=== PATIENT | female | born 1940 | race Caucasian/White ===

== ENCOUNTER → 2018-11-05 11:15 | Outpatient (REF) | payer MEDICARE, OTHER, SELFPAY ==
[2018-11-05 11:27] LABS: INR 3.1 (0.9-1.3); Prothrombin Time 36.9 SECONDS (10.1-12.7)
== END ==
LOC: LAB 11:15
PROVIDERS: PCP Family Medicine; Visit Provider Family Medicine
DX: Z79.01 Long term (current) use of anticoagulants (principal)
CPT/HCPCS: 85610

== ENCOUNTER → 2018-12-10 11:41 | Outpatient (REF) | payer MEDICARE, OTHER, SELFPAY ==
[2018-12-10 11:51] LABS: INR 2.9 (0.9-1.3); Prothrombin Time 34.5 SECONDS (10.1-12.7)
== END ==
LOC: LAB 11:41
PROVIDERS: PCP Family Medicine; Visit Provider Family Medicine
DX: Z79.01 Long term (current) use of anticoagulants (principal)
CPT/HCPCS: 85610

== ENCOUNTER → 2019-01-07 11:53 | Outpatient (ROUT) | payer MEDICARE, OTHER, SELFPAY ==
[2019-01-07 12:12] LABS: INR 3.4 (0.9-1.3); Prothrombin Time 40.6 SECONDS (10.1-12.7)
== END ==
PROVIDERS: PCP Family Medicine; Visit Provider Family Medicine
DX: Z79.01 Long term (current) use of anticoagulants (principal)
CPT/HCPCS: 85610

== ENCOUNTER → 2019-02-08 12:02 | Outpatient (ROUT) | payer MEDICARE, OTHER, SELFPAY ==
[2019-02-08 12:17] LABS: INR 3.1 (0.9-1.3); Prothrombin Time 36.8 SECONDS (10.1-12.7)
== END ==
PROVIDERS: PCP Family Medicine; Visit Provider Family Medicine
DX: Z79.01 Long term (current) use of anticoagulants (principal)
CPT/HCPCS: 85610

== ENCOUNTER → 2019-04-01 11:22 | Outpatient (ROUT) | payer MEDICARE, OTHER, SELFPAY ==
[2019-04-01 11:35] LABS: INR 2.3 (0.9-1.3); Prothrombin Time 26.5 SECONDS (10.1-12.7)
== END ==
PROVIDERS: Visit Provider Student in an Organized Health Care Education/Training Program
DX: Z79.01 Long term (current) use of anticoagulants (principal)
CPT/HCPCS: 85610

== ENCOUNTER → 2019-04-15 11:27 | Outpatient (ROUT) | payer MEDICARE, OTHER, SELFPAY ==
[2019-04-15 12:09] LABS: Prothrombin Time 22.9 SECONDS (10.1-12.7)
== END ==
PROVIDERS: Visit Provider Student in an Organized Health Care Education/Training Program
DX: I25.10 Atherosclerotic heart disease of native coronary artery without angina pectoris (principal); Z95.2 Presence of prosthetic heart valve; Z79.01 Long term (current) use of anticoagulants
CPT/HCPCS: 85610

== ENCOUNTER → 2019-06-13 12:27 | Outpatient (CLI) | payer MEDICARE, OTHER, SELFPAY ==
--- NOTE | 2019-06-13 | DI.RAD.S_ITS ---
PROCEDURE: XR CHEST 2V INDICATIONS: DYSPNEA TECHNIQUE: 2 views of the chest were acquired. COMPARISON: [facility], , CHEST 2 VIEW, 07/09/2007, 12:41. FINDINGS: Surgical changes and devices: Median sternotomy wires are intact. Surgical clips in the mediastinum are present. Changes of valvular replacement. Lungs and pleura: Small bilateral pleural effusions larger on the right. Mild diffuse interstitial prominence with vascular congestion. No focal consolidation. Mediastinum: The cardiomediastinal contours remain stable with enlargement of the cardiac silhouette. Bones and chest wall: No suspicious bony abnormalities. Soft tissues appear unremarkable. IMPRESSION: Constellation of findings suggestive of early pulmonary edema. Concurrent infectious/inflammatory process not excluded if clinically appropriate. Dictated by: Ajit Asekw M.D. on 06/13/2019 at 14:11 Approved by: Ajit Askew M.D. on 06/13/2019 at 14:14
== END ==
PROVIDERS: PCP Student in an Organized Health Care Education/Training Program; Visit Provider Student in an Organized Health Care Education/Training Program
DX: R06.00 Dyspnea, unspecified (principal); J90 Pleural effusion, not elsewhere classified
CPT/HCPCS: 71046; 84484

== ENCOUNTER → 2019-06-13 12:30 | Outpatient (ROUT) | payer MEDICARE, OTHER, SELFPAY ==
[2019-06-13 13:13] LABS: Troponin I < 0.012 ng/mL (0.01-0.034)
== END ==
PROVIDERS: Visit Provider Student in an Organized Health Care Education/Training Program
DX: R06.09 Other forms of dyspnea (principal)
CPT/HCPCS: 84484

== ENCOUNTER → 2019-06-24 12:46 | Outpatient (CLI) | payer MEDICARE, OTHER, SELFPAY ==
--- NOTE | 2019-07-01 07:48 | PM.PFT.1 ---
Pulmonary Function Test Referral & Results Date Patient Seen: 06/24/19 Requesting provider: Jammie Mclean Results: The spirometry demonstrates an FVC of 1.34 L which is 57% of predicted. The FEV1 was measured at 0.7 L which is 40% of predicted. The FEV1/FVC ratio was 52 which is 70% of predicted. Following the administration of bronchodilator there was no appreciable change. Lung volumes show an SVC of 1.52 L which is 61% of predicted. The diffusing capacity was measured at 10.37 which is 48% of predicted. No hemoglobin value was provided, so no correction for potential anemia could be made, if appropriate. The maximum voluntary ventilation was reduced Interpretation: This study demonstrates severe obstructive lung disease with FEV1 less than 1 L. There is no evidence of benefit following bronchodilator administration Patient also with moderate restrictive lung disease based on reduction SVC There is also severe reduction in diffusing capacity suggesting significant disease at the capillary alveolar level. Altogether this is consistent with a diagnosis of COPD
== END ==
PROVIDERS: Visit Provider Student in an Organized Health Care Education/Training Program
DX: R06.02 Shortness of breath (principal); J98.8 Other specified respiratory disorders
CPT/HCPCS: 94060; 94726; 94729

== ENCOUNTER → 2019-07-15 11:22 | Outpatient (ROUT) | payer MEDICARE, OTHER, SELFPAY ==
[2019-07-15 11:39] LABS: INR 2.3 (0.9-1.3); Prothrombin Time 27.1 SECONDS (10.1-12.7)
== END ==
PROVIDERS: Visit Provider Student in an Organized Health Care Education/Training Program
DX: Z79.01 Long term (current) use of anticoagulants (principal)
CPT/HCPCS: 85610

== ENCOUNTER → 2019-08-04 11:41 | Outpatient (ROUT) | payer MEDICARE, OTHER, SELFPAY ==
[2019-08-04 11:59] LABS: INR 2.6 (0.9-1.3); Prothrombin Time 30.9 SECONDS (10.1-12.7)
[2019-08-04 12:04] LABS: D Dimer < 200 ng/mL (<230)
[2019-08-04 12:21] LABS: Influenza A - CEPHEID Flu A NEGATIVE (NEGATIVE)
[2019-08-04 12:22] LABS: Influenza B - CEPHEID Flu B NEGATIVE (NEGATIVE)
== END ==
PROVIDERS: Visit Provider Student in an Organized Health Care Education/Training Program
DX: R06.09 Other forms of dyspnea (principal)
CPT/HCPCS: 85379; 85610; 87502

== ENCOUNTER → 2019-08-04 11:48 | Outpatient (CLI) | payer MEDICARE, OTHER, SELFPAY ==
--- NOTE | 2019-08-04 | DI.RAD.S_ITS ---
PROCEDURE: XR CHEST 2V INDICATIONS: cough TECHNIQUE: 2 views of the chest were acquired. COMPARISON: [facility], PET/CT NECK TO MID THIGH, 06/17/2007, 12:48. [facility], CT, THORAX WITH CONTRAST, 01/09/2012, 9:23. [facility], CR, CHEST 2 VIEW, 07/09/2007, 12:41. [facility], CR, XR CHEST 2V, 06/13/2019, 12:30. [facility], CR, XR CHEST 2V, 08/04/2019, 0:00. FINDINGS: Surgical changes and devices: Sternotomy and a aortic valve prosthesis. Lungs and pleura: Small right pleural effusion. There are bilateral interstitial infiltrates. No pneumothorax. Mediastinum: Mediastinal contours are normal. Heart size is prominent. Bones and chest wall: No suspicious bony abnormalities. Degenerative changes in thoracic spine. Severe atherosclerotic aorta. Soft tissues appear unremarkable. IMPRESSION: 1. Mild cardiomegaly and increased vascularity consistent mild pulmonary edema. 2. Small right pleural effusion. Dictated by: Frank Aldana M.D. on 08/04/2019 at 14:43 Approved by: Frank Aldana M.D. on 08/04/2019 at 14:51
== END ==
PROVIDERS: PCP Student in an Organized Health Care Education/Training Program; Visit Provider Student in an Organized Health Care Education/Training Program
DX: R05 Cough (principal); R06.09 Other forms of dyspnea; I51.7 Cardiomegaly; J90 Pleural effusion, not elsewhere classified
CPT/HCPCS: 71046; 85379; 85610; 87502

== ENCOUNTER → 2019-08-16 06:47 | Outpatient (CLI) | payer MEDICARE, OTHER, SELFPAY ==
--- NOTE | 2019-08-16 | DI.ECHO.S_ITS ---
[facility]---------+ [facility] +---------+ : : [address] : : : : [id number] : : : : Phone: [phone]+ Echocardiogram Report + + :Name: THANIA VANG Study Date: 08/16/2019 Height: 62 in : :[facility] Weight: 160 lb : : Gender: Female BSA: 1.7 m2 : :: 1940 Age: 78 yrs BP: 132/78 mmHg: :Reason For Study: DYSPNEA : : Performed By: Andrew Cohn : :Referring: TARAS DEL ROSARIO : + + Interpretation Summary The left ventricle is grossly normal size. The ejection fraction is estimated to be 60-65%. The right ventricle is mildly dilated. There is moderate mitral regurgitation. There is a mechanical aortic valve. The prosthetic aortic valve is well-seated. The aortic valve mean gradient is 10 mmHg. The peak aortic velocity is 2.08 m/sec. There is moderate tricuspid regurgitation. The right ventricular systolic pressure is estimated to be at least 45 mmHg based on an estimated right atrial pressure of 3 mm Hg. The patient was in atrial fibrillation with heart rates between 97-109 bpm during the exam. The patient had a bundle branch block rhythm during the exam. Procedure: A two-dimensional transthoracic echocardiogram with color flow and Doppler was performed. The study quality was technically adequate. There is no prior echocardiogram noted for this patient. The patient was in atrial fibrillation with heart rates between 97-109 bpm during the exam. The patient had a bundle branch block rhythm during the exam. Left Ventricle: The left ventricle is grossly normal size. Proximal septal thickening is noted. There is no echo evidence for significant left ventricular outflow tract obstruction. There is no thrombus. Left ventricular systolic function is normal. The ejection fraction is estimated to be 60-65%. There are no focal wall motion abnormalities. Diastolic function could not be accurately assessed due to atrial fibrillation. Right Ventricle: The right ventricle is mildly dilated. Right ventricular systolic function is mild to moderately reduced. Atria: The left atrium is severely dilated. Right atrial size is normal. The interatrial septum is intact with no evidence for an atrial septal defect. Mitral Valve: The mitral valve leaflets appear mildly thickened, but open well. The mitral valve leaflets are mildly calcified. There is mild to moderate mitral annular calcification. No significant mitral valve stenosis. There is moderate mitral regurgitation. Aortic Valve: There is a mechanical aortic valve. The prosthetic aortic valve is well-seated. The aortic valve mean gradient is 10 mmHg. The peak aortic velocity is 2.08 m/sec. No aortic regurgitation is present. Tricuspid Valve: The tricuspid valve leaflets are thin and pliable. There is moderate tricuspid regurgitation. The right ventricular systolic pressure is estimated to be at least 45 mmHg based on an estimated right atrial pressure of 3 mm Hg. Pulmonic Valve: The pulmonic valve is not well visualized. There is trace pulmonic regurgitation. Great Vessels: The aortic root is normal size. The dimensions of the ascending aorta are normal. The pulmonary artery is normal size. The IVC is of normal diameter and collapses greater than 50% with a sniff. This suggests a low right atrial pressure of 3 mm Hg. Pericardium/ Pleura There is no pericardial effusion. There is no pleural effusion. MMode/2D Measurements & Calculations LVIDd: 3.3 cm LVOT diam: 2.0 cm LVIDs: 2.3 cm Ao root diam: 2.5 cm FS: 29.9 % EPSS: 0.91 cm IVSd: 1.4 cm LVPWd: 0.89 cm LV mejia. diameter/BSA (cm/m^2): 1.9 LV sys. diameter/BSA (cm/m^2): 1.3 LA A2 area: 24.5 cm2 RA long axis: 5.0 cm LA A4 area: 24.3 cm2 RA area: 12.1 cm2 LA length (vol): 6.1 cm RA vol: 24.7 ml LA vol: 82.8 ml RA : 14.2 ml/m2 LA vol index: 47.6 ml/m2 TAPSE: 0.80 cm Doppler Measurements & Calculations Ao V2 max: 208.9 cm/sec LVOT Max Jose L: 78.2 cm/sec Ao V2 mean: 146.9 cm/sec LV V1 max P.4 mmHg Ao max P.6 mmHg LV V1 VTI: 15.6 cm Ao mean P.9 mmHg FLASH(I,D): 1.2 cm2 Ao V2 VTI: 41.1 cm FLASH(V,D): 1.2 cm2 sev ratio: 0.38 FLASH indexed to BSA (cm^2/m^2): 0.67 Med Peak E' Jose L: 7.9 cm/sec TR max jose l: 287.0 cm/sec Lat Peak E' Jose L: 7.9 cm/sec TR max P.4 mmHg PA V2 max: 75.5 cm/sec PA V2 mean: 60.3 cm/sec PA mean P.6 mmHg PA Accel Time: 0.07 sec SV(LVOT): 48.0 ml Reading Physician:06:36 PM
--- NOTE | 2019-08-16 08:15 | DI.CT.S_ITS ---
PROCEDURE: CT ANGIO CHEST INDICATIONS: Dyspnea on exertion TECHNIQUE: After the administration of intravenous contrast, 2 mm thick sections acquired from the pulmonary apices to the posterior costophrenic angles. 3-dimensional maximum intensity projection (MIP) coronal and sagittal reformats were then acquired through the thorax. For radiation dose reduction, the following was used: automated exposure control, adjustment of mA and/or kV according to patient size. COMPARISON: [facility], CT, THORAX WITH CONTRAST, 01/09/2012, 9:23. FINDINGS: Image quality: Excellent. Pulmonary arteries: Pulmonary arteries are normal in size, and demonstrate no intraluminal filling defects to suggest central pulmonary embolism. Lungs and pleura: There is a solid 1.0 cm nodule within the posterior medial basal segment of the left lower lobe (series 5, image 156). This was not visualized on the comparison CT from 01/09/12. No other pulmonary nodules. No acute air space opacities. No pleural effusion or pneumothorax. Mediastinum: Heart size is normal, without pericardial effusion. No mediastinal or hilar adenopathy. Thoracic aorta is normal in caliber and enhancement. Dense atheromatous calcifications are present throughout the thoracic aorta. Esophagus is normal in caliber, without hiatal hernia. Bones and chest wall: No suspicious bony lesions. Ribs and thoracic spine appear intact throughout. Thyroid gland is unremarkable. No axillary or supraclavicular adenopathy. Abdomen: Visualized upper abdominal solid organs appear normal in the early arterial phase of enhancement. IMPRESSION: 1. No acute pulmonary embolus. 2. 1.0 cm left lower lobe solid pulmonary nodule. Please see followup guidelines below. Consider PET CT or followup in 3 months. Fleischner Society criteria for SOLID lung nodule followup. Nodule size (mm)Low-risk patientHigh-risk patient?4No follow-up neededFollow-up at 12 mo; if no change, no further follow-up>2-0Taoymj-us CT at 12 mo; if no change, no further follow-up needed.Initial follow-up CT at 6-12 mo, then 18-24 mo if no change. >6-8Initial follow-up CT at 6-12 mo, then 18-24 mo if no change. Initial follow-up CT at 3-6 mo, then 9-12 mo and 24 mo if no change. >8Follow-up CT at 3, 9, 24 mo. Or PET and/or biopsy.Same as for low-risk pts. Fleischner Society criteria for SUB-SOLID lung nodule followup. Solitary pure ground-glass nodules5 mm or lessNo followup needed. >5 mm3 mo follow-up CT to confirm persistence. Then annual CT for 3 years. Part-solid nodules3 mo follow-up CT to confirm persistence. If persistent with solid component <5 mm, annual CT for at least 3 years. If solid component is 5 mm or more, biopsy or surgical resection. Consider PET-CT for lesions > 10 mm. Multiple sub-solid nodulesPure ground glass nodules [address] at 2 and 4 years. Pure ground glass nodules >5 mm without dominant lesion. [address] to confirm persistence, then annual followup CT for at least 3 years. Dominant nodule(s) with part-solid or solid component. [address] to confirm persistence. If persistent, consider biopsy or surgical resection, thompson if lesions have >5 mm solid component. Dictated by: Dinorah Elaine M.D. on 08/16/2019 at 8:32 Approved by: Dinorah Elaine M.D. on 08/16/2019 at 8:36
[2019-08-16 08:22] LABS: Blood Urea Nitrogen 20 mg/dL (7-17); Calcium 9.8 mg/dL (8.4-10.2); Carbon Dioxide 31 mmol/L (22-32); Chloride 94 mmol/L (98-107); Estimated Glomerular Filt Rate 53.3 mL/min (>60); Glucose 136 mg/dL (80-110); HEMOLYSIS < 15 (0-50); Sodium 135 mmol/L (137-145)
== END ==
PROVIDERS: PCP Student in an Organized Health Care Education/Training Program; Visit Provider Student in an Organized Health Care Education/Training Program
DX: I08.1 Rheumatic disorders of both mitral and tricuspid valves (principal); I48.91 Unspecified atrial fibrillation; R06.09 Other forms of dyspnea; I25.10 Atherosclerotic heart disease of native coronary artery without angina pectoris; R91.1 Solitary pulmonary nodule; Z95.2 Presence of prosthetic heart valve
CPT/HCPCS: 36415; 71275; 80048; 93306; Q9967

== ENCOUNTER → 2019-09-02 15:46 | Outpatient (ROUT) | payer MEDICARE, OTHER, SELFPAY ==
[2019-09-02 16:04] LABS: INR 1.7 (0.9-1.3); Prothrombin Time 19.8 SECONDS (10.1-12.7)
== END ==
PROVIDERS: PCP Student in an Organized Health Care Education/Training Program; Visit Provider Student in an Organized Health Care Education/Training Program
DX: Z79.01 Long term (current) use of anticoagulants (principal)
CPT/HCPCS: 85610

== ENCOUNTER 2019-09-16 09:58 | Emergency (ER) | payer MEDICARE, OTHER, SELFPAY ==
[2019-09-16 10:05] VITALS: BP 92/74; PULSE 121; RESP 17; TEMP 36.5; O2SAT 98; BMI 29.2
--- NOTE | 2019-09-16 10:06 | DI.RAD.S_ITS ---
PROCEDURE: XR KNEE RT 3V INDICATIONS: Pain and swelling s/p fall 3 weeks ago TECHNIQUE: 3 views of the knee were acquired. COMPARISON: None. FINDINGS: Bones: No fractures or dislocations. No suspicious bony lesions. Soft tissues: There is a mild joint effusion. No suspicious soft tissue calcifications. IMPRESSION: No acute bony injury is seen. Mild joint effusion. If there is strong clinical suspicion for internal derangement of this joint, please consider a dedicated MRI for further evaluation (assuming that there is no contraindication to MRI). Dictated by: Jeffrey Hanna M.D. on 09/16/2019 at 9:29 Approved by: Jeffrey Hanna M.D. on 09/16/2019 at 9:30
[2019-09-16 11:30] VITALS: BP 124/63; PULSE 100; RESP 21; O2SAT 97
[2019-09-16 11:36] LABS: INR 2.2 (0.9-1.3); Prothrombin Time 26.1 SECONDS (10.1-12.7)
[2019-09-16] MEDS: ONDANSETRON 4 MG/2 ML INJ IV (11:39)
[2019-09-16] MEDS: KETOROLAC 60 MG/2 ML VIAL 15 MG IV (11:39)
[2019-09-16 11:40] LABS: BUN Creatinine Ratio 24.4 (6-22); Blood Urea Nitrogen 22 mg/dL (7-17); Calcium 9.5 mg/dL (8.4-10.2); Carbon Dioxide 27 mmol/L (22-32); Chloride 99 mmol/L (98-107); Estimated Glomerular Filt Rate > 60.0 mL/min (>60); Glucose 150 mg/dL (80-110); HEMOLYSIS < 15 (0-50); Magnesium 2.1 mg/dL (1.6-2.3); Potassium 3.5 mmol/L (3.4-5.1); Sodium 137 mmol/L (137-145)
[2019-09-16 11:51] LABS: Troponin I < 0.012 ng/mL (0.01-0.034)
[2019-09-16 12:02] VITALS: BP 134/99; PULSE 98; RESP 18; O2SAT 99
[2019-09-16] MEDS: METOPROLOL TARTRATE 5 MG/5 ML INJ IV (12:08)
[2019-09-16 12:18] VITALS: BP 141/87; PULSE 100; RESP 20; O2SAT 98
--- NOTE | 2019-09-16 12:20 | PC.NURSE ---
pt here for right knee injury 3 weeks ago, +pain right knee.
[2019-09-16 12:35] VITALS: BP 135/91; PULSE 94; RESP 22; O2SAT 97
--- NOTE | 2019-09-16 15:43 | ED_ITS ---
HPI - Extremity Injury (Lower) General Chief Complaint: Extremity Injury, Lower Stated Complaint: bad right knee Time Seen by Provider: 09/16/19 10:34 Source: patient Mode of arrival: Wheelchair Limitations: no limitations History of Present Illness HPI Narrative: The patient is an 78-year-old female who states that 2 weeks ago she slipped the and fell landing on her buttock and slid down stairs. During that fall she has injured her right knee. She has developed progressive pain and discomfort in the right knee and has not been seen for it. The patient came into the emergency department to have it evaluated. During her evaluation the patient was noted to have a heart rate of 120. The nurse proceeded to try and evaluated and the woman said no your not and would not allow it to be evaluated. When I went in to see the patient she had a tachycardia that was consistent with atrial fibrillation with rapid ventricular rate. I explained to her that that needed to be further evaluated. She has minimal shortness of breath at times no chest pain no fever no chills or sweats. She states that she has had aortic valve replacement and is on Coumadin. She is also taking Lopressor 100 mg per day for rate control and blood pressure. She denies a history of COPD myocardial infarction congestive heart failure diabetes. She has had no abdominal pain nausea or vomiting. She states that when she tries to walking ambulate is when she develops most pain in her knee. Upon weight-bearing and ambulation her pain is 10/10. At rest her pain is 2 to 3/10 without movement. Related Data Home Medications Medication Instructions Recorded Confirmed latanoprost 1 drp [facility] BEDTIME #0 08/30/16 09/16/19 warfarin [Coumadin] #0 08/30/16 03/18/18 albuterol sulfate [ProAir HFA] 1 puff INHALATION PRN PRN 09/16/19 09/16/19 atorvastatin 40 mg PO DAILY 09/16/19 09/16/19 fluticasone propion-salmeterol 1 puff INHALATION BID 09/16/19 09/16/19 [Advair HFA] hydrochlorothiazide 50 mg PO DAILY 09/16/19 09/16/19 losartan 25 mg PO DAILY 09/16/19 09/16/19 metoprolol tartrate 100 mg PO BID 09/16/19 09/16/19 potassium chloride [Klor-Con 10] 10 meq PO TID 09/16/19 Previous Rx's Medication Instructions Recorded ibuprofen 600 mg PO QID PRN #20 tab NS MDD 4 09/16/19 tabs Allergies Allergy/AdvReac Type Severity Reaction Status Date / Time oxycodone [OXYCODONE] Allergy Unknown Verified 09/16/19 10:11 Penicillins [PENICILLINS] Allergy Unknown Verified 09/16/19 10:11 Review of Systems Review of Systems Narrative: Her review systems were all negative except for the those mentioned in the history of present illness. Patient History Social History household members: none lives independently: Yes Smoking Status: Never smoker alcohol intake: never substance use type: does not use Smoking Status: Never smoker alcohol intake frequency: holidays/special occasions only Substance Use Type: does not use Exam Narrative Exam Narrative: PHYSICAL EXAM: CONSTITUTIONAL: Awake, Alert, Oriented, Coherent, Cooperative in NAD. She is of very cooperative feisty. Does not appear toxic or ill. HEAD: AT/NC EENT: PERRL, FROM of eyes, no discharge, No epistaxis or nasal drainage Oral mucosa is moist and pink, posterior pharynx is without erythema or exudate. NECK: Supple, no obvious JVD, Trachea is midline without stridor, no palpable LN or masses. SPINE: No gross deformity, no palpable tenderness of the cervical, thoracic, lumbar or sacral spine. No CVA tenderness. THORAX: No deformity, retractions, chest wall tenderness, subcutaneous air or crepitice. LUNGS: Clear with symmetrical breath sounds without respiratory distress HEART: Heart tones reveal a variable S1-S2 with a soft systolic murmur. Rhythm is irregular irregular and tachycardic. Radial pulses are 2+ and symmetrical. ABDOMEN: Soft, non-tender, normal bowel sounds without guarding, rebound, rigidity or palpable mass . LYMPHATIC: no palpable lymph nodes EXTREMITIES: The patient's right knee he is mildly swollen. She has tenderness to palpation over the tibia and fibula without bruising or deformity. There is no tenderness to palpation over the popliteal fossa. She does have tenderness along the medial and lateral joint lines. There is no ballottement of the patella. SKIN: No rash, bruising, petechiae or purpura. NEURO: Awake, alert, oriented, conversive, cranial nerves II-XII are symmetrical and normal, moves all 4 extremities and is ambulatory Initial Vital Signs Initial Vital Signs: Vital Signs Temperature 97.7 F 09/16/19 10:05 Pulse Rate 121 H 09/16/19 10:05 Respiratory Rate 17 09/16/19 10:05 Blood Pressure 92/74 09/16/19 10:05 Pulse Oximetry 98 09/16/19 10:05 Course Course Course Narrative: I spoke with the patient and explained to her that because of her atrial fibrillation she will not fill her ve she review ntricles since her atria are not functioning properly. I said that this would get worse with a rapid heart rate. I explained to the patient that her atrial fibrillation is a complication of her aortic stenosis and valve replacement. She agreed to have an IV started and be evaluated. The patient's EKG revealed that she had a right bundle branch block with severe right axis deviation normal QT interval at 427 milliseconds a QRS duration of 150 milliseconds. Her ventricular rate was 101. Her INR was 2.2 and her electrolytes and magnesium were acceptable. Her EKG rev ealed no acute diagnostic ST segment changes. She had inverted T-waves in leads V1 V2. She had a questionable QS wave in lead III and AVF. This may represent a questionable inferior wall SD of undetermined etiology. The patient was administered 5 mg of Lopressor IV push to make sure that her heart rate was ranging from 85 to less than 100 before being discharged. She was placed in a right leg immobilizer for her knee and given a prescription for a front wheeled walker. Even though she was on Coumadin she was given a brief prescription for for ibuprofen 600 mg Q 8-6 hours. She was advised to use it only for pain and discomfort that is unrelieved by Tylenol. The patient is unable to take opiates since Percocet/oxycodone caused her to become psychotic. She refused titration and small doses of IV morphine. She was discharged home and advised to follow- up with her primary care physician as well as Dr. dumont the orthopedic surgeon on-call. She was informed that the pain medicines and knee immobilizer will not relieve her pain and discomfort completely bite take the edge off her discomfort solid is tolerable. The same is true of the knee immobilizer. Orders Ordered: ED Orders 09/16/19 10:06 XR knee RT 3V Stat 09/16/19 11:00 EKG-12 Lead Stat 09/16/19 11:20 Basic Metabolic Panel Stat Magnesium Stat Prothrombin Time INR Stat Troponin I Stat Discontinued Medications Ketorolac Tromethamine (Toradol) 15 mg IV NOW ONE Stop: 09/16/19 11:11 Last Admin: 09/16/19 11:39 Dose: 15 mg Documented by: JOSÉ ANTONIO Metoprolol Tartrate (Lopressor) 5 mg IV Q5M BASILIO Stop: 09/16/19 11:56 Last Admin: 09/16/19 13:02 Dose: Not Given Documented by: Admin: 09/16/19 13:02 Dose: Not Given Documented by: Admin: 09/16/19 12:08 Dose: 5 mg Documented by: SALAS Morphine Sulfate (Morphine) 4 mg IV NOW ONE Stop: 09/16/19 11:01 Last Admin: 09/16/19 11:40 Dose: Not Given Documented by: JOSÉ ANTONIO Ondansetron HCl (Zofran) 4 mg IV NOW ONE Stop: 09/16/19 11:01 Last Admin: 09/16/19 11:39 Dose: 4 mg Documented by: JOSÉ ANTONIO Vital Signs Vital signs: Vital Signs - 8 hr 09/16/19 10:05 09/16/19 11:30 09/16/19 12:02 Temperature 97.7 F Pulse Rate 121 H 100 H 98 H Respiratory Rate 17 21 18 Blood Pressure 92/74 Blood Pressure [Right Arm] 124/63 134/99 H Pulse Oximetry 98 97 99 09/16/19 12:18 09/16/19 12:35 Temperature Pulse Rate 100 H 94 H Respiratory Rate 20 22 Blood Pressure Blood Pressure [Right Arm] 141/87 H 135/91 H Pulse Oximetry 98 97 MDM - Extremity Injury (Lower) Lab Data Result diagrams: 09/16/19 11:20 Labs: Lab Results 09/16/19 09/16/19 Range/Units 11:20 11:20 PT 26.1 H (10.1-12.7) SECONDS INR 2.2 H (0.9-1.3) Sodium 137 (137-145) mmol/L Potassium 3.5 (3.4-5.1) mmol/L Chloride 99 (98-107) mmol/L Carbon Dioxide 27 (22-32) mmol/L BUN 22 H (7-17) mg/dL Creatinine 0.90 (0.52-1.04) mg/dL Estimated GFR > 60.0 (>60) mL/min BUN/Creatinine Ratio 24.4 H (6-22) Glucose 150 H (80-110) mg/dL Calcium 9.5 (8.4-10.2) mg/dL Magnesium 2.1 (1.6-2.3) mg/dL Troponin I < 0.012 (0.01-0.034) ng/mL Discharge Plan Departure Patient Disposition: Home Clinical Impression: Effusion of knee joint right Injury of knee Qualifiers: Encounter type: initial encounter Laterality: right Qualified Code(s): S89.91XA - Unspecified injury of right lower leg, initial encounter Fall Qualifiers: Encounter type: initial encounter Qualified Code(s): W19.XXXA - Unspecified fall, initial encounter Discharge Date/Time: 09/16/19 13:02 Instructions: DI for Knee Sprain, DI for Knee Effusion, DI for Knee Pain Activity Restrictions/Additional Instructions: Apply ice to your knee and continue to wear the knee brace for stability. To help with the pain and discomfort in the knee walk with either crutches or a front wheeled walker. Since she had troubles with opiate narcotic pain medicines take ibuprofen 600 mg 1 tablet every 6-8 hours as needed for pain and discomfort. When you apply ice to the knee do it for 20-30 minutes every 2-3 hours to help keep the swelling down. Follow up with the [facility] group and Dr. Campos who is the orthopedic surgeon on-call for today. Prescriptions: New ibuprofen 600 mg tablet 600 mg PO QID MDD 4 tabs PRN (Reason: pain) Qty: 20 RF: 0 No Action warfarin [Coumadin] 5 MG tablet Qty: 0 RF: 0 latanoprost 0.005 % drops 1 drp [facility] BEDTIME Qty: 0 RF: 0 atorvastatin 40 mg tablet 40 mg PO DAILY RF: 0 metoprolol tartrate 100 mg tablet 100 mg PO BID RF: 0 hydrochlorothiazide 50 mg tablet 50 mg PO DAILY RF: 0 potassium chloride [Klor-Con 10] 10 mEq tablet extended release 10 meq PO TID RF: 0 losartan 25 mg tablet 25 mg PO DAILY RF: 0 albuterol sulfate [ProAir HFA] 90 mcg/actuation HFA aerosol inhaler 1 puff INHALATION PRN PRN (Reason: Shortness Of Breath) RF: 0 Advair HFA 230-21 mcg/actuation HFA aerosol inhaler 1 puff INHALATION BID RF: 0 Referrals: Jammie Mclean MD [Primary Care Provider] - Tu Wall MD [Physician] -
== END 2019-09-16 13:02 | disposition home or self-care (01) ==
PROVIDERS: Emergency Provider Emergency Medicine; PCP Student in an Organized Health Care Education/Training Program
DX: M25.461 Effusion, right knee (principal); S89.91XA Unspecified injury of right lower leg, initial encounter; R00.0 Tachycardia, unspecified; I48.20 Chronic atrial fibrillation, unspecified; R06.02 Shortness of breath; Z79.01 Long term (current) use of anticoagulants; W10.9XXA Fall (on) (from) unspecified stairs and steps, initial encounter
CPT/HCPCS: 36415; 73562; 80048; 83735; 84484; 85610; 93005; 93010; 96374; 96375; 99285; J1885; J2405

== ENCOUNTER → 2019-09-29 15:47 | Outpatient (CLI) | payer MEDICARE, OTHER, SELFPAY ==
--- NOTE | 2019-09-29 | DI.MRI.S_ITS ---
PROCEDURE: MR KNEE RT WO CON INDICATIONS: Pain in right knee TECHNIQUE: Noncontrast sagittal PD fast spin echo and T2 fast spin echo with fat saturation, sagittal 3-D FLASH with fat saturation; coronal T1 spin echo and PD fast spin echo with fat saturation, and axial PD fast spin echo with fat saturation through the knee. COMPARISON: [facility], CR, XR KNEE RT 3V, 09/16/2019, 10:10. FINDINGS: Image quality: Diagnostic. Bones and joint: There is no acute fracture or dislocation. No suspicious osseous lesions are evident. There is a small moderate size knee joint effusion with a small amount of fluid extending into a Urbina's cyst. Subcutaneous edema about the knee is evident that is more pronounced anteriorly. There is heterogeneity and mild irregularity of the hyaline articular cartilage within all 3 compartments of the knee. There likely are scattered small full-thickness cartilaginous defects. However, no large cartilaginous defects or degenerative marrow changes are appreciated. Cruciate ligaments: The anterior and posterior cruciate ligaments are intact. Menisci: There is moderate fraying along the free edge of the body of the medial meniscus with an apparent irregular radial tear (image 21, series 6). There may be low-grade partial-thickness tearing involving the posterior root of the medial meniscus. Undersurface irregularity along the periphery of the body and posterior horn of the lateral meniscus is evident and which could potentially represent a small undersurface flap tear that has arisen from the body of the meniscus. However, no discrete tears are appreciated. The lateral meniscus is otherwise unremarkable. Medial structures: The medial collateral ligament is thickened and edematous with probable intrasubstance partial thickness tearing. There is edema overlying the soft tissues of the medial collateral ligament. The semimembranosus tendon insertion is intact. The imaged portions of the pes anserinus tendons are unremarkable. No significant fluid is contained within the pes anserinus bursa. Mild increased signal is noted involving the medial gastrocnemius muscle. Lateral structures: The popliteal tendon is intact, but mildly edematous. The lateral collateral ligament proper (fibular collateral ligament) and the proximal tibiofibular ligaments are intact. The distal aspect of the biceps femoris tendon and the iliotibial band are intact. There is mild increased signal involving the proximal aspect of the scoliosis and lateral gastrocnemius muscle. Anterior structures: The quadriceps and patellar tendons are intact. There is prepatellar edema. No significant edema is seen within the infrapatellar fat pad. IMPRESSION: 1. 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 2. Small to moderate size knee joint effusion with a probable small leaking Urbina cyst. 3. Low to moderate grade partial-thickness tearing of the medial collateral ligament. 4. Irregular radial tear through the body of the medial meniscus. 5. Undersurface irregularity involving the body and posterior horn of the lateral meniscus could represent chronic meniscal degeneration or potentially an irregular undersurface flap tear. Please correlate clinically. 6. Mild proximal popliteal tendinopathy. 7. Prepatellar edema may be reactive. Please correlate clinically to exclude bursitis. Dictated by: Musa Abdul M.D. on 09/29/2019 at 16:52 Approved by: Musa Abdul M.D. on 09/29/2019 at 16:56
== END ==
PROVIDERS: PCP Student in an Organized Health Care Education/Training Program; Referring Provider Student in an Organized Health Care Education/Training Program; Visit Provider Student in an Organized Health Care Education/Training Program
DX: M25.561 Pain in right knee (principal); S83.241A Other tear of medial meniscus, current injury, right knee, initial encounter; S83.411A Sprain of medial collateral ligament of right knee, initial encounter; M94.261 Chondromalacia, right knee; M25.461 Effusion, right knee; M67.961 Unspecified disorder of synovium and tendon, right lower leg; R60.0 Localized edema
CPT/HCPCS: 73721

== ENCOUNTER → 2019-10-18 11:57 | Outpatient (ROUT) | payer MEDICARE, OTHER, SELFPAY ==
[2019-10-18 12:07] LABS: INR 3.9 (0.9-1.3); Prothrombin Time 44.5 SECONDS (10.1-12.7)
== END ==
PROVIDERS: PCP Student in an Organized Health Care Education/Training Program; Visit Provider Student in an Organized Health Care Education/Training Program
DX: Z79.01 Long term (current) use of anticoagulants (principal)
CPT/HCPCS: 85610

== ENCOUNTER → 2019-11-04 11:22 | Outpatient (ROUT) | payer MEDICARE, OTHER, SELFPAY ==
[2019-11-04 12:27] LABS: INR 2.2 (0.9-1.3); Prothrombin Time 25.8 SECONDS (10.1-12.7)
== END ==
PROVIDERS: PCP Student in an Organized Health Care Education/Training Program; Visit Provider Student in an Organized Health Care Education/Training Program
DX: Z79.01 Long term (current) use of anticoagulants (principal)
CPT/HCPCS: 85610

== ENCOUNTER → 2019-11-25 07:49 | Outpatient (ROUT) | payer MEDICARE, OTHER, SELFPAY ==
[2019-11-25 07:57] LABS: INR 2.1 (0.9-1.3); Prothrombin Time 23.6 SECONDS (10.1-12.7)
== END ==
PROVIDERS: PCP Student in an Organized Health Care Education/Training Program; Visit Provider Student in an Organized Health Care Education/Training Program
DX: Z79.01 Long term (current) use of anticoagulants (principal)
CPT/HCPCS: 85610

== ENCOUNTER → 2019-12-26 11:57 | Outpatient (ROUT) | payer MEDICARE, OTHER, SELFPAY ==
[2019-12-26 12:08] LABS: INR 2.5 (0.9-1.3); Prothrombin Time 28.4 SECONDS (10.1-12.7)
== END ==
PROVIDERS: PCP Student in an Organized Health Care Education/Training Program; Visit Provider Student in an Organized Health Care Education/Training Program
DX: Z79.01 Long term (current) use of anticoagulants (principal)
CPT/HCPCS: 85610

== ENCOUNTER → 2020-03-02 11:25 | Outpatient (ROUT) | payer MEDICARE, OTHER, SELFPAY ==
[2020-03-02 11:42] LABS: INR 2.8 (0.9-1.3); Prothrombin Time 32.2 SECONDS (10.1-12.7)
== END ==
PROVIDERS: PCP Student in an Organized Health Care Education/Training Program; Visit Provider Student in an Organized Health Care Education/Training Program
DX: Z79.01 Long term (current) use of anticoagulants (principal); Z95.2 Presence of prosthetic heart valve; I34.8 Other nonrheumatic mitral valve disorders
CPT/HCPCS: 85610

== ENCOUNTER 2020-12-12 12:40 | Inpatient (IN) | payer MEDICARE, OTHER, SELFPAY ==
[2020-12-12] VITALS (28 sets, daily range): BP systolic 103–205; BP diastolic 73–100; PULSE 113–139; RESP 12–44; TEMP 36–37; O2SAT 87–97; BMI 29.0
--- NOTE | 2020-12-12 | DI.US.S_ITS ---
PROCEDURE: US ABDOMEN LIMITED INDICATIONS: ELEVATED LIVER FUNCTION TESTS TECHNIQUE: Real-time scanning was performed of the abdominal and retroperitoneal organs, with image documentation. COMPARISON: [facility], CT, CT ANGIO CHEST, 08/16/2019, 8:29. FINDINGS: Liver: There are numerous oval, heterogeneously hypoechoic masses scattered throughout the liver. Largest in the mid left hepatic lobe measures 1.3 x 1.2 x 0.9 cm. Largest in the lateral left hepatic lobe posteriorly measures 1.4 x 1.1 x 1.0 cm. A 1.1 x 1.0 x 1.0 cm lesion is noted in the caudate lobe. There is limited evaluation the right hepatic lobe. The largest right-sided lesion measures 1.4 x 1.1 cm. Difficult to assess vascularity within these masses as the patient was unable to suspend respirations. Gallbladder: The gallbladder contains 2 mobile gallstones. 1 measures approximately 1.6 cm in the 2nd measures approximately 1.7 cm. No wall thickening. No pericholecystic fluid. Negative sonographic Moore's. Biliary ducts: Intrahepatic bile ducts are non-dilated. Extrahepatic bile duct caliber measures 7 mm. Normal is 6-7 mm or less in diameter, or 10 mm or less post-cholecystectomy. Pancreas: Pancreas was not well visualized on this exam. Miscellaneous: Incidental note of a right pleural effusion. IMPRESSION: 1. Multiple scattered bilateral intrahepatic masses suspicious for metastatic disease. No hepatic lesions were identified on comparison CT dated August 16, 2019. Consider further evaluation with contrast enhanced CT. 2. Cholelithiasis without sonographic evidence for acute cholecystitis. Dictated by: Ajit Askew M.D. on 12/12/2020 at 14:34 Approved by: Ajit Askew M.D. on 12/12/2020 at 14:41
--- NOTE | 2020-12-12 12:49 | DI.RAD.S_ITS ---
PROCEDURE: XR CHEST 1V INDICATIONS: Dyspnea TECHNIQUE: One view of the chest was acquired. COMPARISON: [facility], CR, XR CHEST 2V, 08/04/2019, 11:50. FINDINGS: Surgical changes and devices: Status post CABG procedure. Lungs and pleura: Small right and moderate-sized left pleural fluid collections. Consolidation noted lung bases bilaterally which could represent compressive atelectasis, aspiration or pneumonia. Mediastinum: Mediastinal contours appear normal. Heart is enlarged. Bones and chest wall: No suspicious bony lesions. Overlying soft tissues appear unremarkable. IMPRESSION: 1. Small right and moderate-sized left pleural effusion. 2. Bibasilar consolidation compatible with compressive atelectasis, aspiration or pneumonia. Dictated by: Edita Diaz MD, PhD on 12/12/2020 at 13:01 Approved by: Edita Diaz MD, PhD on 12/12/2020 at 13:02
--- NOTE | 2020-12-12 12:51 | ED.SOB ---
HPI - SOB/Dyspnea General Chief Complaint: Shortness of Breath/Dyspnea Stated Complaint: SOB/UTI/PNA Time Seen by Provider: 12/12/20 12:48 Source: patient and EMS Mode of arrival: EMS History of Present Illness HPI Narrative: Patient arrives by EMS from home for 1 month complaints of dyspnea worsening last few days. Complains of bilateral leg swelling. Has history of mechanical heart valve replacement many years ago is on anticoagulation. Denies denies any chest pain. Denies any calf pain. Does complain of urinary frequency and foul urine odor. Patient is not on oxygen at home. Vital signs reviewed with EMS and here. Patient states the difference and left arm and right arm is not not new. Her left arm has decreased blood flow/blockage which she states surgeons states is not large enough to consider surgery. Denies any back pain. No history of aneurysm or dissection. Again, denies any chest pain or back pain. Vital signs noted. Patient is tachypneic. Received albuterol 2 puffs prior to arrival. See pulmonary function tests results below from June 2019. Does have history of COPD. Does not smoke. Has chronic vocal cord dysfunction that requires her to [address] [id number] Function Test Patient: Clair Steiner LMR#: [id number]: [id number]:[id number]/Sex: 78 / F Date of Service: 06/24/19Provider: Adam Holm MD Pulmonary Function Test Referral & Results Date Patient Seen: 06/24/19 Requesting provider: Jammie Mclean Results: The spirometry demonstrates an FVC of 1.34 L which is 57% of predicted. The FEV1 was measured at 0.7 L which is 40% of predicted. The FEV1/FVC ratio was 52 which is 70% of predicted. Following the administration of bronchodilator there was no appreciable change. Lung volumes show an SVC of 1.52 L which is 61% of predicted. The diffusing capacity was measured at 10.37 which is 48% of predicted. No hemoglobin value was provided, so no correction for potential anemia could be made, if appropriate. The maximum voluntary ventilation was reduced Interpretation: This study demonstrates severe obstructive lung disease with FEV1 less than 1 L. There is no evidence of benefit following bronchodilator administration Patient also with moderate restrictive lung disease based on reduction SVC There is also severe reduction in diffusing capacity suggesting significant disease at the capillary alveolar level. Altogether this is consistent with a diagnosis of COPD Signed By:<Electronically signed by Adam Holm MD>07/01/19 2550 Related Data Home Medications Medication Instructions Recorded Confirmed warfarin [Coumadin] 2.5 mg PO Q OTHER DAY #0 08/30/16 12/13/20 albuterol sulfate [ProAir HFA] 1 puff INHALATION PRN PRN 09/16/19 12/13/20 atorvastatin 40 mg PO DAILY 09/16/19 12/13/20 fluticasone propion-salmeterol 1 puff INHALATION BID 09/16/19 12/14/20 [Advair HFA] hydrochlorothiazide 50 mg PO DAILY 09/16/19 12/14/20 losartan 25 mg PO DAILY 09/16/19 12/13/20 metoprolol tartrate 100 mg PO BID 09/16/19 12/13/20 latanoprost 1 drp EYE-BOTH QPM 12/13/20 12/13/20 Allergies Allergy/AdvReac Type Severity Reaction Status Date / Time Penicillins [PENICILLINS] Allergy Mild Hives Verified 12/13/20 13:29 oxycodone [OXYCODONE] Allergy Unknown Verified 09/16/19 10:11 Review of Systems Review of Systems Narrative: GENERAL: Denies chills, fatigue, malaise, fever, sweats. HEENT: Denies sinus pain, ear pain, sore throat RESPIRATORY: Complaint dyspnea, denies cough CARDIOVASCULAR: Denies chest pain, palpitations complains of peripheral edema GASTROINTESTINAL: Denies nausea, vomiting, abdominal pain : Denies dysuria, frequency, hematuria MUSCULOSKELETAL: denies muscle or bony pain SKIN: Denies rash, skin lesions NEUROLOGIC: Denies weakness, numbness ROS Unobtainable: All systems reviewed & are unremarkable except as noted in HPI and below Patient History Medical History Glaucoma Hypertension Kidney stones Lung cancer Surgical History History of aortic valve replacement with metallic valve History of appendectomy History of bilateral tubal ligation Status post thoracotomy Family History Father Heart disease Grandfather Cancer Social History household members: family lives independently: Yes Smoking Status: Never smoker alcohol intake: never substance use type: does not use Smoking Status: Never smoker alcohol intake frequency: holidays/special occasions only Substance Use Type: does not use Exam Narrative Exam Narrative: GENERAL: in mild distress, not toxic is moderately dyspneic. However is able to answer questions. Not obtunded HEAD: Normocephalic. EYES: Pupils equal round No scleral icterus. No injection no discharge ENT: Mucous membranes moist. NECK: Trachea midline. CARDIOVASCULAR: Regular rate and rhythm, loud systolic murmur RESPIRATORY: Diminished lower half of left side lung sounds. Diffuse wheezing and rales. GASTROINTESTINAL: Abdomen soft, non-tender EXTREMITIES: No gross deformities. 4+ bilateral ankle and pedal edema. BACK: No flank tenderness. NEURO: AOx4. SKIN: Warm and dry, warm to touch. PSYCH: Not anxious, is cooperative Initial Vital Signs Initial Vital Signs: Vital Signs Temperature 98.0 F 12/12/20 12:49 Pulse Rate 136 H 12/12/20 12:49 Respiratory Rate 27 H 12/12/20 12:49 Blood Pressure 205/100 H 12/12/20 12:49 Pulse Oximetry 87 L 12/12/20 12:49 Course Course Course Narrative: Patient breathing much easier now. Lasix given DuoNeb given Decision to Admit Date: 12/12/20 Decision to Admit time: 14:32 Orders Ordered: Acetaminophen (Acetaminophen 325 Mg Tablet) 650 mg PO Q6HR PRN PRN Reason: Fever/Mild Pain (1-3) Albuterol/Ipratropium (Albuterol/Ipratropium 3 Ml Ampul) 3 ml INH RTQ4HR BASILIO Last Admin: 12/14/20 07:53 Dose: Not Given Documented by: Admin: 12/14/20 07:53 Dose: Not Given Documented by: Admin: 12/14/20 07:39 Dose: 3 ml Documented by: Admin: 12/14/20 02:00 Dose: Not Given Documented by: Admin: 12/13/20 22:08 Dose: 3 ml Documented by: Admin: 12/13/20 18:56 Dose: 3 ml Documented by: Admin: 12/13/20 14:22 Dose: Not Given Documented by: JOSÉ Heparin Sodium (Porcine) (Heparin Flush (Cl/Picc/Mid-Line) 50 Unit/5 Ml Syringe) 50 unit IV BID BASILIO Last Admin: 12/14/20 07:37 Dose: 50 unit Documented by: Admin: 12/13/20 20:19 Dose: 50 unit Documented by: HAI Heparin Sodium (Porcine) (Heparin Flush (Cl/Picc/Mid-Line) 50 Unit/5 Ml Syringe) 50 unit IV PRN PRN PRN Reason: Flush Azithromycin 500 mg/ Dextrose 250 mls @ 250 mls/hr IV Q24H [facility] Stop: 12/14/20 23:59 Last Infusion: 12/13/20 17:47 Dose: 0 mls/hr Documented by: Admin: 12/13/20 16:15 Dose: 250 mls/hr Documented by: HAI Diltiazem HCl 125 mg/ Sodium (Chloride) 125 mls @ 5 mls/hr IV TITRATE [facility]; Protocol Last Titration: 12/13/20 08:58 Dose: 0 mg/hr, 0 mls/hr Documented by: Titration: 12/13/20 08:20 Dose: 5 mg/hr, 5 mls/hr Documented by: Titration: 12/13/20 07:45 Dose: 10 mg/hr, 10 mls/hr Documented by: Titration: 12/13/20 05:41 Dose: 15 mg/hr, 15 mls/hr Documented by: Titration: 12/13/20 05:35 Dose: 10 mg/hr, 10 mls/hr Documented by: Admin: 12/13/20 05:26 Dose: 5 mg/hr, 5 mls/hr Documented by: LUCAS Piperacillin/Tazobactam/Dextrose (Zosyn) 3.375 gm in 50 mls @ 12.5 mls/hr IV Q8H [facility] Last Infusion: 12/14/20 07:37 Dose: 0 mls/hr Documented by: Admin: 12/14/20 03:57 Dose: 12.5 mls/hr Documented by: Infusion: 12/14/20 00:20 Dose: 0 mls/hr Documented by: Admin: 12/13/20 20:20 Dose: 12.5 mls/hr Documented by: HAI Amiodarone HCl/Dextrose (Nexterone) 181 mg in 100.56 mls @ 16.7 mls/hr IV CONT [facility]; Protocol Stop: 12/14/20 17:02 Metoprolol Tartrate (Metoprolol Ir 50 Mg Tablet) 150 mg PO BID [facility] Last Admin: 12/14/20 08:31 Dose: Not Given Documented by: Admin: 12/13/20 20:20 Dose: 150 mg Documented by: HAI Morphine Sulfate (Morphine 2 Mg/Ml Inj) 2 mg IV Q3HR PRN PRN Reason: Pain, Moderate (4-6) Naloxone HCl (Naloxone 0.4 Mg/Ml Vial) 0.2 mg IV Q2MIN PRN PRN Reason: Opiate Reversal Prednisone (Prednisone 20 Mg Tablet) 40 mg PO DAILY [facility] Last Admin: 12/14/20 08:27 Dose: 40 mg Documented by: Admin: 12/13/20 11:08 Dose: 40 mg Documented by: JOSÉ Sodium Chloride (Sodium Chloride 0.9% Flush) 10 ml IV BID [facility] Last Admin: 12/14/20 07:37 Dose: 10 ml Documented by: Admin: 12/13/20 20:19 Dose: 10 ml Documented by: HAI Sodium Chloride (Sodium Chloride 0.9% Flush) 10 ml IV PRN PRN PRN Reason: Flush Discontinued Medications Acetaminophen (Acetaminophen 325 Mg Tablet) 650 mg PO NOW ONE Stop: 12/12/20 14:32 Last Admin: 12/12/20 15:06 Dose: 650 mg Documented by: BENJAMIN Albuterol (Albuterol 2.5 Mg/3 Ml Neb (Adult)) 2.5 mg INH [id number] PRN PRN Reason: Shortness Of Breath Albuterol/Ipratropium (Albuterol/Ipratropium 3 Ml Ampul) 3 ml INH NOW ONE Stop: 12/12/20 14:34 Last Admin: 12/12/20 14:36 Dose: 3 ml Documented by: VARINDER Albuterol/Ipratropium (Albuterol/Ipratropium 3 Ml Ampul) 3 ml INH PRY4ONON BASILIO Last Admin: 12/12/20 20:17 Dose: Not Given Documented by: GRETA Albuterol/Ipratropium (Albuterol/Ipratropium 3 Ml Ampul) 3 ml INH RTQ4HR PRN PRN Reason: Shortness Of Breath Digoxin (Digoxin 500 Mcg/2 Ml Ampul) 500 mcg IV NOW ONE Stop: 12/13/20 13:11 Last Admin: 12/13/20 13:39 Dose: 500 mcg Documented by: JOSÉ Diltiazem HCl (Diltiazem 5 Mg/Ml Sdv) 18 mg IV NOW ONE Stop: 12/13/20 00:20 Last Admin: 12/13/20 00:30 Dose: 18 mg Documented by: MAGNUS Diltiazem HCl (Diltiazem 5 Mg/Ml Sdv) 25 mg IV NOW ONE Stop: 12/13/20 02:38 Last Admin: 12/13/20 02:46 Dose: 25 mg Documented by: MAGNUS Furosemide (Furosemide 100 Mg/10 Ml Vial) 60 mg IV NOW ONE Stop: 12/12/20 13:02 Last Admin: 12/12/20 13:18 Dose: 60 mg Documented by: BENJAMIN Furosemide (Furosemide 100 Mg/10 Ml Vial) 60 mg IV NOW ONE Stop: 12/14/20 08:35 Last Admin: 12/14/20 09:13 Dose: 60 mg Documented by: ALETA Heparin Sodium (Porcine) (Heparin 5,000 Unit/Ml Vial) 5,000 unit SUBCUT BID BASILIO Sodium Chloride (Normal Saline 0.9%) 1,000 mls @ 150 mls/hr IV CONT BASILIO Last Admin: 12/12/20 12:59 Dose: Not Given Documented by: BENJAMIN Aztreonam 1 gm/ Dextrose 50 mls @ 100 mls/hr IV NOW ONE Stop: 12/12/20 14:28 Last Infusion: 12/12/20 15:53 Dose: 0 mls/hr Documented by: Admin: 12/12/20 15:20 Dose: 100 mls/hr Documented by: BENJAMIN Azithromycin 500 mg/ Dextrose 250 mls @ 250 mls/hr IV NOW ONE Stop: 12/12/20 14:59 Last Infusion: 12/12/20 17:30 Dose: 0 mls/hr Documented by: Admin: 12/12/20 16:05 Dose: 250 mls/hr Documented by: BENJAMIN Aztreonam 2 gm/ Dextrose 100 mls @ 100 mls/hr IV Q8H [facility] Last Infusion: 12/13/20 15:30 Dose: 0 mls/hr Documented by: Admin: 12/13/20 14:26 Dose: 100 mls/hr Documented by: Infusion: 12/13/20 07:17 Dose: 0 mls/hr Documented by: Admin: 12/13/20 05:49 Dose: 100 mls/hr Documented by: Infusion: 12/12/20 22:35 Dose: 0 mls/hr Documented by: Admin: 12/12/20 21:32 Dose: 100 mls/hr Documented by: ALIN Phytonadione 5 mg/ Dextrose 50.5 mls @ 101 mls/hr IV NOW ONE Stop: 12/12/20 18:46 Last Admin: 12/12/20 19:44 Dose: 101 mls/hr Documented by: ALIN Vancomycin HCl (Vancomycin) 1,000 mg in 200 mls @ 200 mls/hr IV Q24H [facility] Last Infusion: 12/12/20 21:25 Dose: 0 mls/hr Documented by: Admin: 12/12/20 20:24 Dose: 200 mls/hr Documented by: FADY Piperacillin/Tazobactam/Dextrose (Zosyn) 4.5 gm in 100 mls @ 200 mls/hr IV NOW ONE Stop: 12/13/20 15:44 Last Infusion: 12/13/20 16:14 Dose: 0 mls/hr Documented by: Admin: 12/13/20 15:32 Dose: 200 mls/hr Documented by: HAI Amiodarone HCl/Dextrose (Nexterone) 360 mg in 200 mls @ 33.333 mls/hr IV NOW ONE; Protocol Stop: 12/13/20 22:59 Last Admin: 12/13/20 17:37 Dose: 33.333 mls/hr, 33.33 mls/hr Documented by: HAI Amiodarone HCl/Dextrose (Nexterone) 150 mg in 100 mls @ 600 mls/hr IV NOW ONE; Protocol Stop: 12/13/20 16:54 Last Infusion: 12/13/20 17:15 Dose: 0 mls/hr Documented by: Admin: 12/13/20 17:03 Dose: 600 mls/hr Documented by: HAI Amiodarone HCl/Dextrose (Nexterone) 542 mg in 301.11 mls @ 16.7 mls/hr IV CONT NR; Protocol Stop: 12/14/20 17:00 Amiodarone HCl/Dextrose (Nexterone) 360 mg in 200 mls @ 16.7 mls/hr IV CONT BASILIO; Protocol Stop: 12/14/20 10:44 Last Admin: 12/14/20 10:36 Dose: 16.7 mls/hr, 16.7 mls/hr Documented by: Titration: 12/14/20 10:36 Dose: 16.7 mls/hr, 16.7 mls/hr Documented by: Admin: 12/13/20 23:01 Dose: 16.7 mls/hr, 16.7 mls/hr Documented by: NABOR Methylprednisolone (Methylprednisolone 125 Mg/2 Ml Vial) 125 mg IV NOW ONE Stop: 12/12/20 14:59 Last Admin: 12/12/20 15:05 Dose: 125 mg Documented by: BENJAMIN Metoprolol Tartrate (Metoprolol Ir 50 Mg Tablet) 100 mg PO NOW ONE Stop: 12/12/20 17:15 Last Admin: 12/12/20 18:20 Dose: 100 mg Documented by: BENJAMIN Metoprolol Tartrate (Metoprolol Tartrate 5 Mg/5 Ml Inj) 5 mg IV NOW ONE Stop: 12/12/20 19:09 Last Admin: 12/12/20 19:45 Dose: Not Given Documented by: ALIN Metoprolol Tartrate (Metoprolol Ir 50 Mg Tablet) 100 mg PO BID BASILIO Last Admin: 12/13/20 07:32 Dose: 100 mg Documented by: Admin: 12/12/20 22:05 Dose: 100 mg Documented by: MONARAMB Metoprolol Tartrate (Metoprolol Tartrate 5 Mg/5 Ml Inj) 5 mg IV NOW ONE Stop: 12/12/20 22:46 Last Admin: 12/12/20 23:51 Dose: 5 mg Documented by: MAGNUS Metoprolol Tartrate (Metoprolol Ir 50 Mg Tablet) 50 mg PO NOW ONE Stop: 12/13/20 11:00 Last Admin: 12/13/20 11:07 Dose: 50 mg Documented by: JOSÉ Phytonadione (Phytonadione (Vit K1) 5 Mg Tablet) 5 mg PO NOW ONE Stop: 12/13/20 14:41 Last Admin: 12/13/20 15:32 Dose: 5 mg Documented by: HAI Reevaluation(s) Reevaluation #1: Patient feeling better. Lasix given. DuoNeb ordered. Patient understands need to be admitted. Time: 14:32 Reevaluation #2: I spoke with son, David, he is power [employer] attorney, he states patient is DNR. They do not want surgical intervention. They understand if they did desire gallbladder surgery would not be able to be done here. It would require transfer. He states he would like patient to be admitted here and for pleurocentesis and antibiotics and diuresis only. Phone number [phone]. Patient is awake alert oriented x4. She has informed hospitalist that she is DNR. Son would like to talk to her to confirm DNR status. He told me that there is a polst form at home, but states she can be full code? Son states patient had history right lung cancer. With surgical resection. Likely finding on CT scan of the chest today. Time: 18:16 Consultations Consultation #1: Spoke with hospitalist, dr saini, will admit patient. Instructed to give aztreonam. Time 6:15 p.m.. I have updated him regarding my discussion with patient and son and they do not want surgical intervention other than pleurocentesis Time: 14:32 Consultation #2: Spoke with cardiology Dr. porter, may give oral metoprolol. Time: 17:45 Consultation #3: Spoke with Dr. davila, radiologist, he reviewed films and Dr. Gonzales is here tomorrow for Radiology and of available for pleurocentesis as well as liver biopsy Time: 17:45 Additional Consultation(s): 6:[address] Fagan. At this time medical concerns need to be addressed. After that surgical intervention can be considered.. I have reviewed with son and patient do not want surgery at this time, they desire diuresis antibiotics for pneumonia and UTI as well as pleurocentesis for the left lung. At this time no liver biopsy Vital Signs Vital signs: Vital Signs - 8 hr 12/12/20 12:49 12/12/20 12:58 12/12/20 13:00 Temperature 98.0 F Pulse Rate 136 H 138 H 138 H Respiratory Rate 27 H 28 H 27 H Blood Pressure 205/100 H 103/80 Pulse Oximetry 87 L 93 94 12/12/20 13:21 12/12/20 13:30 12/12/20 13:31 Temperature Pulse Rate 136 H 138 H 139 H Respiratory Rate 28 H 29 H 30 H Blood Pressure 118/77 121/79 Pulse Oximetry 95 97 96 12/12/20 14:00 12/12/20 14:30 Temperature Pulse Rate 135 H 139 H Respiratory Rate 18 29 H Blood Pressure Pulse Oximetry 95 94 MDM - SOB/Dyspnea Differential Diagnosis Differential diagnosis: Likely acute exacerbation of chronic obstructive airways disease, congestive heart failure, community acquired pneumonia and pulmonary embolism Medical Records Attestation: I reviewed the patient's medical records. Lab Data Attestation: I reviewed the patient's lab results. Result diagrams: 12/14/20 04:55 12/14/20 04:55 Labs: Lab Results 12/12/20 12/12/20 12/12/20 Range/Units 13:00 13:11 13:11 WBC (4.5-11.0) X10^3/uL RBC (4.0-5.2) X10^6/uL Hgb (12.0-16.0) g/dL Hct (36-46) % MCV (80-100) fL MCH (26-34) PG MCHC (30-36) % RDW (11.6-14.8) % Plt Count (150-400) X10^3/uL Neut % (Auto) Lymph % (Auto) [place] % (Auto) Eos % (Auto) Baso % (Auto) Lymph # (Auto) [place] # (Auto) Baso # (Auto) Total Counted Seg Neutrophils % (38-70) % Band Neutrophils % (3-7) % Lymphocytes % (Manual) (25-45) % Atypical Lymphs % ( - 0) % Monocytes % (Manual) (2-11) % Metamyelocytes % (-0) % Neutrophils # (Manual) (8877-4616) /uL RBC Morphology Polychromasia Anisocytosis PT 72.8 H (10.1-12.7) SECONDS INR 6.5 H* (0.9-1.3) APTT 41 H (26.4-36.2) SECONDS Sodium (137-145) mmol/L Potassium (3.4-5.1) mmol/L Chloride (98-107) mmol/L Carbon Dioxide (22-32) mmol/L BUN (7-17) mg/dL Creatinine (0.52-1.04) mg/dL Estimated GFR (>60) mL/min BUN/Creatinine Ratio (6-22) Glucose (80-110) mg/dL Lactate (0.7-2.1) mmol/L Calcium (8.4-10.2) mg/dL Total Bilirubin (0.2-1.3) mg/dL AST (14-36) IU/L ALT (<35) IU/L Alkaline Phosphatase (38-126) U/L Total Creatine Kinase (30-135) U/L CK-MB (CK-2) CK-MB (CK-2) Rel Index Troponin I (0.01-0.034) ng/mL NT-Pro-B Natriuret Pep 1850 H (<450) pg/mL Total Protein (6.3-8.2) g/dL Albumin (3.5-5.0) g/dL Globulin (1.7-4.1) g/dL Albumin/Globulin Ratio (1.0-2.8) Lipase (23-300) U/L Urine Color Urine Appearance Urine pH (4.5-8.0) Ur Specific [place] (1.000-1.035) Urine Protein (Negative) Urine Glucose (UA) (Negative) g/dL Urine Ketones (NEGATIVE) Urine Occult Blood (Negative) Urine Nitrate (Negative) Urine Bilirubin (NEGATIVE) Urine Urobilinogen (0.2) E.U./dL Ur Leukocyte Esterase (NEGATIVE) Urine RBC (0-5/HPF) Urine WBC (0-5/HPF) Urine Bacteria (None) Ur Culture Indicated? SARS-CoV-2 (PCR) Negative (Negative) 12/12/20 12/12/20 12/12/20 Range/Units 13:11 13:11 13:11 WBC 24.8 H (4.5-11.0) X10^3/uL RBC 5.66 H (4.0-5.2) X10^6/uL Hgb 17.3 H (12.0-16.0) g/dL Hct 52.3 H (36-46) % MCV 92.4 (80-100) fL MCH 30.6 (26-34) PG MCHC 33.1 (30-36) % RDW 15.6 H (11.6-14.8) % Plt Count 117 L (150-400) X10^3/uL Neut % (Auto) Not Reportable Lymph % (Auto) Not Reportable [place] % (Auto) Not Reportable Eos % (Auto) Not Reportable Baso % (Auto) Not Reportable Lymph # (Auto) Not Reportable [place] # (Auto) Not Reportable Baso # (Auto) Not Reportable Total Counted 100 Seg Neutrophils % 86.0 H (38-70) % Band Neutrophils % 1.0 L (3-7) % Lymphocytes % (Manual) 3.0 L (25-45) % Atypical Lymphs % 2.0 H ( - 0) % Monocytes % (Manual) 7.0 (2-11) % Metamyelocytes % 1.0 H (-0) % Neutrophils # (Manual) 16787 H (7868-6962) /uL RBC Morphology See below Polychromasia 1+ H Anisocytosis 1+ H PT (10.1-12.7) SECONDS INR (0.9-1.3) APTT (26.4-36.2) SECONDS Sodium 132 L (137-145) mmol/L Potassium 4.7 (3.4-5.1) mmol/L Chloride 102 (98-107) mmol/L Carbon Dioxide 17 L (22-32) mmol/L BUN 63 H (7-17) mg/dL Creatinine 1.02 (0.52-1.04) mg/dL Estimated GFR 51.9 L (>60) mL/min BUN/Creatinine Ratio 61.8 H (6-22) Glucose 174 H (80-110) mg/dL Lactate 2.3 H (0.7-2.1) mmol/L Calcium 9.8 (8.4-10.2) mg/dL Total Bilirubin 3.5 H (0.2-1.3) mg/dL AST 246 H (14-36) IU/L ALT 275 H (<35) IU/L Alkaline Phosphatase 279 H (38-126) U/L Total Creatine Kinase 71 (30-135) U/L CK-MB (CK-2) TNP CK-MB (CK-2) Rel Index TNP Troponin I 0.037 H (0.01-0.034) ng/mL NT-Pro-B Natriuret Pep (<450) pg/mL Total Protein 6.8 (6.3-8.2) g/dL Albumin 3.8 (3.5-5.0) g/dL Globulin 3.0 (1.7-4.1) g/dL Albumin/Globulin Ratio 1.3 (1.0-2.8) Lipase 212 (23-300) U/L Urine Color Urine Appearance Urine pH (4.5-8.0) Ur Specific [place] (1.000-1.035) Urine Protein (Negative) Urine Glucose (UA) (Negative) g/dL Urine Ketones (NEGATIVE) Urine Occult Blood (Negative) Urine Nitrate (Negative) Urine Bilirubin (NEGATIVE) Urine Urobilinogen (0.2) E.U./dL Ur Leukocyte Esterase (NEGATIVE) Urine RBC (0-5/HPF) Urine WBC (0-5/HPF) Urine Bacteria (None) Ur Culture Indicated? SARS-CoV-2 (PCR) (Negative) 12/12/20 Range/Units 13:35 WBC (4.5-11.0) X10^3/uL RBC (4.0-5.2) X10^6/uL Hgb (12.0-16.0) g/dL Hct (36-46) % MCV (80-100) fL MCH (26-34) PG MCHC (30-36) % RDW (11.6-14.8) % Plt Count (150-400) X10^3/uL Neut % (Auto) Lymph % (Auto) [place] % (Auto) Eos % (Auto) Baso % (Auto) Lymph # (Auto) [place] # (Auto) Baso # (Auto) Total Counted Seg Neutrophils % (38-70) % Band Neutrophils % (3-7) % Lymphocytes % (Manual) (25-45) % Atypical Lymphs % ( - 0) % Monocytes % (Manual) (2-11) % Metamyelocytes % (-0) % Neutrophils # (Manual) (0055-0210) /uL RBC Morphology Polychromasia Anisocytosis PT (10.1-12.7) SECONDS INR (0.9-1.3) APTT (26.4-36.2) SECONDS Sodium (137-145) mmol/L Potassium (3.4-5.1) mmol/L Chloride (98-107) mmol/L Carbon Dioxide (22-32) mmol/L BUN (7-17) mg/dL Creatinine (0.52-1.04) mg/dL Estimated GFR (>60) mL/min BUN/Creatinine Ratio (6-22) Glucose (80-110) mg/dL Lactate (0.7-2.1) mmol/L Calcium (8.4-10.2) mg/dL Total Bilirubin (0.2-1.3) mg/dL AST (14-36) IU/L ALT (<35) IU/L Alkaline Phosphatase (38-126) U/L Total Creatine Kinase (30-135) U/L CK-MB (CK-2) CK-MB (CK-2) Rel Index Troponin I (0.01-0.034) ng/mL NT-Pro-B Natriuret Pep (<450) pg/mL Total Protein (6.3-8.2) g/dL Albumin (3.5-5.0) g/dL Globulin (1.7-4.1) g/dL Albumin/Globulin Ratio (1.0-2.8) Lipase (23-300) U/L Urine Color Yellow Urine Appearance Clear Urine pH 5.0 (4.5-8.0) Ur Specific [place] 1.025 (1.000-1.035) Urine Protein 1+ H (Negative) Urine Glucose (UA) Negative (Negative) g/dL Urine Ketones Negative (NEGATIVE) Urine Occult Blood 2+ H (Negative) Urine Nitrate Negative (Negative) Urine Bilirubin Negative (NEGATIVE) Urine Urobilinogen 0.2 (0.2) E.U./dL Ur Leukocyte Esterase Negative (NEGATIVE) Urine RBC 1-5/hpf (0-5/HPF) Urine WBC 1-5/hpf (0-5/HPF) Urine Bacteria Many (>30) H (None) Ur Culture Indicated? Specimen cultured SARS-CoV-2 (PCR) (Negative) Point of Care Testing Glucose POC 153 Imaging Data Chest x-ray: Radiologist's Impression: [address] [id number] ReportSigned Patient: Clair Steiner LMR#: [id number]: 9Acct:[id number]/Sex: 80 / FDate of Service: 12/12/20Loc: EDAccession Number: [id number] Procedure: XR chest 1V Ordering Provider: Valeriy Warren MD PROCEDURE: XR CHEST 1V INDICATIONS: Dyspnea TECHNIQUE: One view of the chest was acquired. COMPARISON: [facility], , XR CHEST 2V, 08/04/2019, 11:50. FINDINGS: Surgical changes and devices: Status post CABG procedure. Lungs and pleura: Small right and moderate-sized left pleural fluid collections. Consolidation noted lung bases bilaterally which could represent compressive atelectasis, aspiration or pneumonia. Mediastinum: Mediastinal contours appear normal. Heart is enlarged. Bones and chest wall: No suspicious bony lesions. Overlying soft tissues appear unremarkable. IMPRESSION: 1. Small right and moderate-sized left pleural effusion. 2. Bibasilar consolidation compatible with compressive atelectasis, aspiration or pneumonia. Dictated by: Edita Diaz MD, PhD on 12/12/2020 at 13:01 Approved by: Edita Diaz MD, PhD on 12/12/2020 at 13:02 CT scan - chest: Radiologist's Impression: [address] [id number] Scan ReportSigned Patient: Clair Steiner LMR#: [id number]: 9Acct:[id number]/Sex: 80 / FDate of Service: 12/12/20Loc: [id number] Number: [id number] Procedure: CT angio chest PE protocol Ordering Provider: Valeriy Warren MD PROCEDURE: CT ANGIO CHEST PE PROTOCOL INDICATIONS: dyspnea TECHNIQUE: After the administration of intravenous contrast, 2 mm thick sections acquired from the pulmonary apices to the posterior costophrenic angles. 3-dimensional maximum intensity projection (MIP) coronal and sagittal reformats were then acquired through the thorax. For radiation dose reduction, the following was used: automated exposure control, adjustment of mA and/or kV according to patient size. COMPARISON: [facility], CT, CT ABDOMEN PELVIS W CON, 12/12/2020, 16:41. [facility], CT, CT ANGIO CHEST, 08/16/2019, 8:29. FINDINGS: Image quality: Excellent. Pulmonary arteries: Pulmonary arteries are normal in size, and demonstrate no intraluminal filling defects to suggest central pulmonary embolism. Lungs and pleura: Moderate left pleural effusion with collapse of a significant portion of the left lower lobe. Interval development of a 9 mm pulmonary nodule, lateral segment of right middle lobe, image 146/6. Previous medial left basilar pulmonary nodule is obscured by pleural fluid and collapsed lung. Question previous partial pulmonary resection on the right. There is only 1 pulmonary vein noted on the right suggesting possible previous right lower lobe resection. Mediastinum: Heart size is normal, without pericardial effusion. No mediastinal or hilar adenopathy. Thoracic aorta is normal in caliber and enhancement. Esophagus is normal in caliber, without hiatal hernia. Bones and chest wall: No suspicious bony lesions. Ribs and thoracic spine appear intact throughout. Thyroid gland 4 is unremarkable as imaged. No axillary or supraclavicular adenopathy. Abdomen: Ill-defined hypodensities in the right and left lobes of the liver are consistent with interval development of pulmonary metastatic disease. This includes an ill-defined 3.8 cm right lobe hypodensity on image 118/5 and a 1.9 cm lateral segment left lobe hypodensity on image 112/5. IMPRESSION: 1. No evidence of acute pulmonary emboli. 2. Question remote partial pulmonary resection on the right. 3. Moderate left pleural effusion with collapse of most of the left lower lobe. 4. Small right pleural effusion. 5. A new 9 mm right middle lobe pulmonary nodule is consistent with metastatic disease. 6. Interval development of extensive liver metastatic disease. Dictated by: Reji Ba M.D. on 12/12/2020 at 17:00 Approved by: Reji Ba M.D. on 12/12/2020 at 17:11 CT scan - abdomen/pelvis: Radiologist's Impression: [facility] [place] [id number] Scan ReportSigned Patient: Clair Steiner LMR#: [id number]: [id number]:[id number]/Sex: 80 / FDate of Service: 12/12/20Loc: [id number] Number: [id number] Procedure: CT abdomen pelvis w con Ordering Provider: Valeriy Warren MD PROCEDURE: CT ABDOMEN PELVIS W CON INDICATIONS: IV contrast only/abdominal pain TECHNIQUE: After the administration of intravenous contrast, 5 mm thick sections acquired from the diaphragm to the symphysis. 5 mm coronal and sagittal reformats were acquired. For radiation dose reduction, the following was used: automated exposure control, adjustment of mA and/or kV according to patient size. COMPARISON: [facility], CT, CT ANGIO CHEST PE PROTOCOL, 12/12/2020, 16:41. FINDINGS: Image quality: Excellent. ABDOMEN: Lung bases: Moderate left pleural effusion with collapse of most of the left lower lobe. Mild right pleural effusion. Heart size is normal. Solid organs: Multiple ill-defined liver metastatic lesions are present. Index lesions are as follows: 1. Segment 2, left lobe, 1.9 cm, image 22/12. 2. Segment 8, dome of liver, superior right anterior segment, images 13/12 in 27/14: 5.4 cm maximum diameter. 3. Segment 6/segment 7, right lobe, image 24/12 and image 39/14, 2.7 cm maximum diameter. Gallbladder is distended. There are large gallbladder neck stones. Question gallbladder wall thickening. Biliary system is non dilated. Pancreas enhances normally. Spleen is normal in size and enhancement. No adrenal nodules. Kidneys demonstrate normal size and enhancement, without hydronephrosis. Peritoneum and bowel: Bowel loops demonstrate normal wall thickness and caliber. No free fluid or air. Sigmoid diverticulosis without evidence of diverticulitis. Nodes and vessels: No retroperitoneal or mesenteric adenopathy by size criteria. Aorta and inferior vena cava are normal in size. Bulky atherosclerotic calcifications. Miscellaneous: No ventral hernias. PELVIS: Genitourinary: Bladder is decompressed by a Becerril catheter. Miscellaneous: No inguinal hernias or adenopathy. Bones: No suspicious bony lesions. No vertebral body compression fractures. Extensive lumbar degenerative change. IMPRESSION: 1. Moderate left pleural effusion with collapse of most of the left lower lobe. 2. Small right pleural effusion. 3. Interval development of extensive hepatic metastatic disease. 4. Distended gallbladder with stones and questionable wall thickening. If suspect possible acute cholecystitis, right upper quadrant ultrasound may be helpful. Dictated by: Reji Ba M.D. on 12/12/2020 at 17:12 Approved by: Reji Ba M.D. on 12/12/2020 at 17:23 US - abdomen: Radiologist's Impression: [address] [id number] ReportSigned Patient: Clair Steiner LMR#: [id number]: [id number]:[id number]/Sex: 80 / FDate of Service: 12/12/20Loc: [id number] Number: [id number] Procedure: US abdomen limited Ordering Provider: Danyel Knight MD PROCEDURE: US ABDOMEN LIMITED INDICATIONS: ELEVATED LIVER FUNCTION TESTS TECHNIQUE: Real-time scanning was performed of the abdominal and retroperitoneal organs, with image documentation. COMPARISON: [facility], CT, CT ANGIO CHEST, 08/16/2019, 8:29. FINDINGS: Liver: There are numerous oval, heterogeneously hypoechoic masses scattered throughout the liver. Largest in the mid left hepatic lobe measures 1.3 x 1.2 x 0.9 cm. Largest in the lateral left hepatic lobe posteriorly measures 1.4 x 1.1 x 1.0 cm. A 1.1 x 1.0 x 1.0 cm lesion is noted in the caudate lobe. There is limited evaluation the right hepatic lobe. The largest right-sided lesion measures 1.4 x 1.1 cm. Difficult to assess vascularity within these masses as the patient was unable to suspend respirations. Gallbladder: The gallbladder contains 2 mobile gallstones. 1 measures approximately 1.6 cm in the 2nd measures approximately 1.7 cm. No wall thickening. No pericholecystic fluid. Negative sonographic Moore's. Biliary ducts: Intrahepatic bile ducts are non-dilated. Extrahepatic bile duct caliber measures 7 mm. Normal is 6-7 mm or less in diameter, or 10 mm or less post-cholecystectomy. Pancreas: Pancreas was not well visualized on this exam. Miscellaneous: Incidental note of a right pleural effusion. IMPRESSION: 1. Multiple scattered bilateral intrahepatic masses suspicious for metastatic disease. No hepatic lesions were identified on comparison CT dated August 16, 2019. Consider further evaluation with contrast enhanced CT. 2. Cholelithiasis without sonographic evidence for acute cholecystitis. Dictated by: Ajit Askew M.D. on 12/12/2020 at 14:34 Approved by: Ajit Askew M.D. on 12/12/2020 at 14:41 ECG Data Attestation: I personally reviewed and interpreted this ECG as follows: Interpretation: Sinus tachycardia rate 137 right bundle-branch block no ST elevation read on EKG however likely atrial flutter MDM Narrative Medical decision making narrative: White cell count noted. Elevated. Multiple sources possible including pneumonia as well as UTI. Patient is not toxic. Heart rate noted. Tachycardia could be due to very large pleural effusions well as CHF as well as pneumonia as well as the patient has not taken her metoprolol for atrial fibrillation. EKG likely atrial flutter. I have reviewed this with cardiology. Patient very complex clinical presentation. However at this time son and daughter do not want surgical intervention, no cardioversion. I have reviewed with cardiology and hospitalist as well. At this time patient expresses to be DNR DNI. She has instructed this to the hospitalist. Critical Care Time Critical Care Time Critical Care Time: Yes Total Critical Care Time: 35 Attestation: Critical Care Time 35 minutes: Critical care time is separate from other billable procedures. This critical care time includes consultation with family and other consulting doctors, review of records, and interpretation of data from labs, EKGs, imaging, etc. Discharge Plan Departure Patient Disposition: Admitted As Inpatient Clinical Impression: COPD with exacerbation, Acute UTI, Cancer, metastatic to liver, Hepatitis Congestive heart failure Qualifiers: Heart failure type: unspecified Heart failure chronicity: unspecified Qualified Code(s): I50.9 - Heart failure, unspecified Community acquired pneumonia Qualifiers: Laterality: unspecified laterality Qualified Code(s): J18.9 - Pneumonia, unspecified organism Cholelithiasis Qualifiers: Cholelithiasis location: other site Biliary obstruction: with biliary obstruction Qualified Code(s): K80.81 - Other cholelithiasis with obstruction Admit Date/Time: 12/12/20 14:30 Admit Provider: Danyel Knight
[2020-12-12] MEDS: FUROSEMIDE 100 MG/10 ML VIAL 60 MG IV (13:18)
[2020-12-12 13:26] LABS: Hematocrit 52.3 % (36-46); Hemoglobin 17.3 g/dL (12.0-16.0); Mean Corpuscular HGB Conc 33.1 % (30-36); Mean Corpuscular Hemoglobin 30.6 PG (26-34); Mean Corpuscular Volume 92.4 fL (80-100); Platelet Count 117 X10^3/uL (150-400); Red Blood Cell Count 5.66 X10^6/uL (4.0-5.2); Red Cell Distribution Width 15.6 % (11.6-14.8); White Blood Cell Count 24.8 X10^3/uL (4.5-11.0)
[2020-12-12 13:28] LABS: Add Manual Diff / Slide Review YES
[2020-12-12 13:30] LABS: PTT Partial Thromboplastin Tim 41 SECONDS (26.4-36.2)
[2020-12-12 13:33] LABS: Lactate (Lactic Acid) 2.3 mmol/L (0.7-2.1)
[2020-12-12 13:34] LABS: Alanine Aminotransferase 275 IU/L (<35); Albumin 3.8 g/dL (3.5-5.0); Albumin Globulin Ratio 1.3 (1.0-2.8); Alkaline Phosphatase 279 U/L (38-126); Aspartate Aminotransferase 246 IU/L (14-36); BUN Creatinine Ratio 61.8 (6-22); Bilirubin Total 3.5 mg/dL (0.2-1.3); Blood Urea Nitrogen 63 mg/dL (7-17); Calcium 9.8 mg/dL (8.4-10.2); Carbon Dioxide 17 mmol/L (22-32); Chloride 102 mmol/L (98-107); Creatine Kinase 71 U/L (30-135); Estimated Glomerular Filt Rate 51.9 mL/min (>60); Glucose 174 mg/dL (80-110); HEMOLYSIS 63 (0-50); Lipase 212 U/L (23-300); Potassium 4.7 mmol/L (3.4-5.1); Sodium 132 mmol/L (137-145); Total Protein 6.8 g/dL (6.3-8.2)
[2020-12-12 13:38] LABS: Prothrombin Time 72.8 SECONDS (10.1-12.7)
[2020-12-12 13:40] LABS: INR 6.5 (0.9-1.3)
[2020-12-12 13:43] LABS: NT-proBNP (BNP-Adult 18+) 1850 pg/mL (<450)
[2020-12-12 13:45] LABS: Troponin I 0.037 ng/mL (0.01-0.034)
[2020-12-12 13:48] LABS: Neutrophils Absolute Manual 21576 /uL (3000-5900); Total Cells Counted 100
[2020-12-12 13:50] LABS: Appearance Urine UA CLEAR; Bilirubin Urine UA NEGATIVE (NEGATIVE); Color Urine UA YELLOW; Glucose Urine UA NEGATIVE (Negative); Ketones Urine UA NEGATIVE (NEGATIVE); Leukocyte Esterase Urine UA NEGATIVE (NEGATIVE); Nitrite Urine UA NEGATIVE (Negative); Occult Blood Urine UA 2+ (Negative); Protein Urine UA 1+ (Negative); Specific Gravity Urine UA 1.025 (1.000-1.035); Urobilinogen Urine UA 0.2 E.U./dL (0.2)
[2020-12-12 13:50] LABS: Anisocytosis 1+; Polychromasia 1+
[2020-12-12 13:56] LABS: Bacteria Urine Many (>30); Culture Indicated Urine Specimen Cultured; RBC Urine 1-5/HPF (0-5/HPF); WBC Urine 1-5/HPF (0-5/HPF)
[2020-12-12 14:12] LABS: COVID19 - ADMIT (NP swab/PCR) Negative (Negative)
[2020-12-12] MEDS: ALBUTEROL/IPRATROPIUM 3 ML AMPUL INH (14:36)
--- NOTE | 2020-12-12 14:38 | PC.NURSE ---
Dr Hernandez and Dr Warren made aware unable to obtain blood cultures. Hard stick and lab and RN unable to draw anymore blood at this time. MD jj'd admin of ABX without cultures. awaiting Abd US and receiving neb from RT.
[2020-12-12] MEDS: methylPREDNISolone 125 MG/2 ML VIAL IV (15:05)
[2020-12-12] MEDS: ACETAMINOPHEN 325 MG TABLET 650 MG PO (15:06)
[2020-12-12 15:16] LABS: Reflexed Lactate in 2 Hours Y
[2020-12-12] MEDS: AZTREONAM 1 GM in DEXTROSE 5 % IN WATER 50 ML 100 ML IV (15:20)
--- NOTE | 2020-12-12 15:28 | DI.CT.S_ITS ---
PROCEDURE: CT ABDOMEN PELVIS W CON INDICATIONS: IV contrast only/abdominal pain TECHNIQUE: After the administration of intravenous contrast, 5 mm thick sections acquired from the diaphragm to the symphysis. 5 mm coronal and sagittal reformats were acquired. For radiation dose reduction, the following was used: automated exposure control, adjustment of mA and/or kV according to patient size. COMPARISON: [facility], CT, CT ANGIO CHEST PE PROTOCOL, 12/12/2020, 16:41. FINDINGS: Image quality: Excellent. ABDOMEN: Lung bases: Moderate left pleural effusion with collapse of most of the left lower lobe. Mild right pleural effusion. Heart size is normal. Solid organs: Multiple ill-defined liver metastatic lesions are present. Index lesions are as follows: 1. Segment 2, left lobe, 1.9 cm, image 22/12. 2. Segment 8, dome of liver, superior right anterior segment, images 13/12 in 27/14: 5.4 cm maximum diameter. 3. Segment 6/segment 7, right lobe, image 24/12 and image 39/14, 2.7 cm maximum diameter. Gallbladder is distended. There are large gallbladder neck stones. Question gallbladder wall thickening. Biliary system is non dilated. Pancreas enhances normally. Spleen is normal in size and enhancement. No adrenal nodules. Kidneys demonstrate normal size and enhancement, without hydronephrosis. Peritoneum and bowel: Bowel loops demonstrate normal wall thickness and caliber. No free fluid or air. Sigmoid diverticulosis without evidence of diverticulitis. Nodes and vessels: No retroperitoneal or mesenteric adenopathy by size criteria. Aorta and inferior vena cava are normal in size. Bulky atherosclerotic calcifications. Miscellaneous: No ventral hernias. PELVIS: Genitourinary: Bladder is decompressed by a Becerril catheter. Miscellaneous: No inguinal hernias or adenopathy. Bones: No suspicious bony lesions. No vertebral body compression fractures. Extensive lumbar degenerative change. IMPRESSION: 1. Moderate left pleural effusion with collapse of most of the left lower lobe. 2. Small right pleural effusion. 3. Interval development of extensive hepatic metastatic disease. 4. Distended gallbladder with stones and questionable wall thickening. If suspect possible acute cholecystitis, right upper quadrant ultrasound may be helpful. Dictated by: Reji Ba M.D. on 12/12/2020 at 17:12 Approved by: Reji Ba M.D. on 12/12/2020 at 17:23
--- NOTE | 2020-12-12 15:28 | DI.CT.S_ITS ---
PROCEDURE: CT ANGIO CHEST PE PROTOCOL INDICATIONS: dyspnea TECHNIQUE: After the administration of intravenous contrast, 2 mm thick sections acquired from the pulmonary apices to the posterior costophrenic angles. 3-dimensional maximum intensity projection (MIP) coronal and sagittal reformats were then acquired through the thorax. For radiation dose reduction, the following was used: automated exposure control, adjustment of mA and/or kV according to patient size. COMPARISON: [facility], CT, CT ABDOMEN PELVIS W CON, 12/12/2020, 16:41. [facility], CT, CT ANGIO CHEST, 08/16/2019, 8:29. FINDINGS: Image quality: Excellent. Pulmonary arteries: Pulmonary arteries are normal in size, and demonstrate no intraluminal filling defects to suggest central pulmonary embolism. Lungs and pleura: Moderate left pleural effusion with collapse of a significant portion of the left lower lobe. Interval development of a 9 mm pulmonary nodule, lateral segment of right middle lobe, image 146/6. Previous medial left basilar pulmonary nodule is obscured by pleural fluid and collapsed lung. Question previous partial pulmonary resection on the right. There is only 1 pulmonary vein noted on the right suggesting possible previous right lower lobe resection. Mediastinum: Heart size is normal, without pericardial effusion. No mediastinal or hilar adenopathy. Thoracic aorta is normal in caliber and enhancement. Esophagus is normal in caliber, without hiatal hernia. Bones and chest wall: No suspicious bony lesions. Ribs and thoracic spine appear intact throughout. Thyroid gland 4 is unremarkable as imaged. No axillary or supraclavicular adenopathy. Abdomen: Ill-defined hypodensities in the right and left lobes of the liver are consistent with interval development of pulmonary metastatic disease. This includes an ill-defined 3.8 cm right lobe hypodensity on image 118/5 and a 1.9 cm lateral segment left lobe hypodensity on image 112/5. IMPRESSION: 1. No evidence of acute pulmonary emboli. 2. Question remote partial pulmonary resection on the right. 3. Moderate left pleural effusion with collapse of most of the left lower lobe. 4. Small right pleural effusion. 5. A new 9 mm right middle lobe pulmonary nodule is consistent with metastatic disease. 6. Interval development of extensive liver metastatic disease. Dictated by: Reji Ba M.D. on 12/12/2020 at 17:00 Approved by: Reji Ba M.D. on 12/12/2020 at 17:11
[2020-12-12] MEDS: AZITHROMYCIN 500 MG in DEXTROSE 5% IN WATER 250 ML IV (16:05)
[2020-12-12 16:17] LABS: Lactate 2HR (Lactic Acid Rflx) 2.7 mmol/L (0.7-2.1)
[2020-12-12] MEDS: METOPROLOL IR 50 MG TABLET 100 MG PO ×2 (18:20→22:05)
--- NOTE | 2020-12-12 19:34 | P.HP_ITS ---
History of Present Illness History of Present Illness Date Patient Seen: 12/12/20 Time Patient Seen: 17:35 Chief complaint: SOB/UTI/PNA Narrative: Ms Steiner is an 80W with PMH CHF, COPD, afib, history of lung cancer s/p lobe resection, HTN, s/p pig valve AVR who comes in with shortness of breath. The patient is notably resistant to getting medical care. She has been having shortness of breath for at least one month. Has not wanted to see an MD. Her son called EMS today. She states she has been short of breath that has been worsening. Has phlegm production that is thick and yellow. No fevers or chills. She has also noticed worsening lower extremity swelling. She has noticed mild abdominal pain, no nausea/vomiting/diarrhea. Her pain is nonspecific and not loc alized. She denies weight loss She came into the ER and vitals were notable for hypoxemia in the 80s, tachypnea in the 30s, she was tachycardic in the 130s. Labs notable for WBC 24.8, hgb 17.3, platelets 117. INR 6.5. Sodium 132, co2 17, bun 63, creatinine 1.02. Lactate 2.3 then repeat 2.7. Bili 3.5, ast 246, alt 275, alk phos 279, troponin 0.037. BNP 1850. UA with bacteria. She was given aztreonam, and lasix IV. She was ordered methylpred, and albuterol, and azithromycin. Abdominal ultrasound was done that showed metastatic lesions. CT of the thorax was done that showed moderate left pleural effusion, 9mm right middle lobe pulmonary nodule. CT of the abdomen and pelvis was done that showed extensive hepatic metastatic disease, and a distended gallbladder. Discussion of findings was had with patient. She is clear she is DNR/DNI. She does not want to undergo any type of surgery. She clearly says her most important goal is to not suffer. She is agreeable to IV medications and thoracentesis. Patient History Medical History Glaucoma Hypertension Kidney stones Lung cancer Surgical History History of aortic valve replacement with metallic valve History of appendectomy History of bilateral tubal ligation Status post thoracotomy Family & Social History Family History Father Heart disease Grandfather Cancer Social History: household members none lives independently Yes Safety & Behavioral: Feels Safe in Current Yes Environment Been Physically Hurt or No Threatened By a Person Tobacco & Substance use: Smoking Status Never smoker alcohol intake never alcohol intake frequency holiday/special occasion Substance Use Type does not use Meds Home Medications and Allergies Home Medications Medication Instructions Recorded Confirmed Type latanoprost 1 drp OPHTH BEDTIME #0 08/30/16 09/16/19 History warfarin [Coumadin] #0 08/30/16 03/18/18 History albuterol sulfate [ProAir HFA] 1 puff INHALATION PRN PRN 09/16/19 09/16/19 History atorvastatin 40 mg PO DAILY 09/16/19 09/16/19 History fluticasone propion-salmeterol 1 puff INHALATION BID 09/16/19 09/16/19 History [Advair HFA] hydrochlorothiazide 50 mg PO DAILY 09/16/19 09/16/19 History ibuprofen 600 mg PO QID PRN #20 tab NS MDD 4 09/16/19 Rx tabs losartan 25 mg PO DAILY 09/16/19 09/16/19 History metoprolol tartrate 100 mg PO BID 09/16/19 09/16/19 History potassium chloride [Klor-Con 10] 10 meq PO TID 09/16/19 History Allergies Allergy/AdvReac Type Severity Reaction Status Date / Time oxycodone [OXYCODONE] Allergy Unknown Verified 09/16/19 10:11 Penicillins [PENICILLINS] Allergy Unknown Verified 09/16/19 10:11 Review of Systems Review of Systems Narrative: 14 systems reviewed and negative aside from HPI Exam Vital Signs (past 8 hours): - 12/12/20 12:49 12/12/20 12:58 12/12/20 13:00 Temperature 98.0 F Pulse Rate 136 H 138 H 138 H Respiratory Rate 27 H 28 H 27 H Blood Pressure 205/100 H 103/80 Pulse Oximetry 87 L 93 94 12/12/20 13:21 12/12/20 13:30 12/12/20 13:31 Temperature Pulse Rate 136 H 138 H 139 H Respiratory Rate 28 H 29 H 30 H Blood Pressure 118/77 121/79 Pulse Oximetry 95 97 96 04/21/21 14:00 12/12/20 14:30 12/12/20 14:45 Temperature Pulse Rate 135 H 139 H 134 H Respiratory Rate 18 29 H 26 H Blood Pressure Pulse Oximetry 95 94 94 12/12/20 14:56 12/12/20 15:00 12/12/20 15:30 Temperature 98.6 F Pulse Rate 137 H 136 H Respiratory Rate 26 H 24 Blood Pressure 118/78 Pulse Oximetry 96 96 12/12/20 15:32 12/12/20 16:00 12/12/20 16:01 Temperature Pulse Rate 138 H 137 H 136 H Respiratory Rate 29 H 30 H 28 H Blood Pressure 170/90 H 193/94 H Pulse Oximetry 95 95 95 12/12/20 16:30 12/12/20 16:31 12/12/20 16:53 Temperature Pulse Rate 134 H 134 H 129 H Respiratory Rate 20 22 12 Blood Pressure 145/77 H 158/93 H Pulse Oximetry 96 96 94 12/12/20 17:00 12/12/20 17:30 12/12/20 17:31 Temperature Pulse Rate 132 H 132 H 132 H Respiratory Rate 34 H 44 H 31 H Blood Pressure 153/81 H 103/78 Pulse Oximetry 95 95 95 Oxygen Delivery Method Room Air Oxygen Flow Rate 3 Narrative Exam Narrative: GENERAL: chronically ill appearing woman, moderate respiratory distress HEENT: PERRL, trachea midline, moist mucous membranes CV: tachycardic, no murmurs PULM: bilateral crackles, decreased breath sounds at left base, bilateral wheezes, tachypneic ABD: soft, tender RUQ, but no rebound or guarding, normal bowel sounds EXT: warm and well perfused, 2=3+ pitting edema NEURO: AAOx3, hoarse voice PSYCH: pleasant, cooperative Objective Labs Result Diagrams: 12/12/20 13:11 12/12/20 13:11 Labs: Laboratory Results - last 24 hr 12/12/20 12/12/20 12/12/20 13:00 13:11 13:11 WBC RBC Hgb Hct MCV MCH MCHC RDW Plt Count Neut % (Auto) Lymph % (Auto) [place] % (Auto) Eos % (Auto) Baso % (Auto) Lymph # (Auto) [place] # (Auto) Baso # (Auto) Total Counted Seg Neutrophils % Band Neutrophils % Lymphocytes % (Manual) Atypical Lymphs % Monocytes % (Manual) Metamyelocytes % Neutrophils # (Manual) RBC Morphology Polychromasia Anisocytosis PT 72.8 H INR 6.5 H* APTT 41 H Sodium Potassium Chloride Carbon Dioxide BUN Creatinine Estimated GFR BUN/Creatinine Ratio Glucose Lactate Calcium Total Bilirubin AST ALT Alkaline Phosphatase Total Creatine Kinase CK-MB (CK-2) CK-MB (CK-2) Rel Index Troponin I NT-Pro-B Natriuret Pep 1850 H Total Protein Albumin Globulin Albumin/Globulin Ratio Lipase Urine Color Urine Appearance Urine pH Ur Specific [place] Urine Protein Urine Glucose (UA) Urine Ketones Urine Occult Blood Urine Nitrate Urine Bilirubin Urine Urobilinogen Ur Leukocyte Esterase Urine RBC Urine WBC Urine Bacteria Ur Culture Indicated? SARS-CoV-2 (PCR) Negative 12/12/20 12/12/20 12/12/20 13:11 13:11 13:11 WBC 24.8 H RBC 5.66 H Hgb 17.3 H Hct 52.3 H MCV 92.4 MCH 30.6 MCHC 33.1 RDW 15.6 H Plt Count 117 L Neut % (Auto) Not Reportable Lymph % (Auto) Not Reportable [place] % (Auto) Not Reportable Eos % (Auto) Not Reportable Baso % (Auto) Not Reportable Lymph # (Auto) Not Reportable [place] # (Auto) Not Reportable Baso # (Auto) Not Reportable Total Counted 100 Seg Neutrophils % 86.0 H Band Neutrophils % 1.0 L Lymphocytes % (Manual) 3.0 L Atypical Lymphs % 2.0 H Monocytes % (Manual) 7.0 Metamyelocytes % 1.0 H Neutrophils # (Manual) 20363 H RBC Morphology See below Polychromasia 1+ H Anisocytosis 1+ H PT INR APTT Sodium 132 L Potassium 4.7 Chloride 102 Carbon Dioxide 17 L BUN 63 H Creatinine 1.02 Estimated GFR 51.9 L BUN/Creatinine Ratio 61.8 H Glucose 174 H Lactate 2.3 H Calcium 9.8 Total Bilirubin 3.5 H AST 246 H ALT 275 H Alkaline Phosphatase 279 H Total Creatine Kinase 71 CK-MB (CK-2) TNP CK-MB (CK-2) Rel Index TNP Troponin I 0.037 H NT-Pro-B Natriuret Pep Total Protein 6.8 Albumin 3.8 Globulin 3.0 Albumin/Globulin Ratio 1.3 Lipase 212 Urine Color Urine Appearance Urine pH Ur Specific [place] Urine Protein Urine Glucose (UA) Urine Ketones Urine Occult Blood Urine Nitrate Urine Bilirubin Urine Urobilinogen Ur Leukocyte Esterase Urine RBC Urine WBC Urine Bacteria Ur Culture Indicated? SARS-CoV-2 (PCR) 12/12/20 12/12/20 13:35 15:54 WBC RBC Hgb Hct MCV MCH MCHC RDW Plt Count Neut % (Auto) Lymph % (Auto) [place] % (Auto) Eos % (Auto) Baso % (Auto) Lymph # (Auto) [place] # (Auto) Baso # (Auto) Total Counted Seg Neutrophils % Band Neutrophils % Lymphocytes % (Manual) Atypical Lymphs % Monocytes % (Manual) Metamyelocytes % Neutrophils # (Manual) RBC Morphology Polychromasia Anisocytosis PT INR APTT Sodium Potassium Chloride Carbon Dioxide BUN Creatinine Estimated GFR BUN/Creatinine Ratio Glucose Lactate 2.7 H Calcium Total Bilirubin AST ALT Alkaline Phosphatase Total Creatine Kinase CK-MB (CK-2) CK-MB (CK-2) Rel Index Troponin I NT-Pro-B Natriuret Pep Total Protein Albumin Globulin Albumin/Globulin Ratio Lipase Urine Color Yellow Urine Appearance Clear Urine pH 5.0 Ur Specific [place] 1.025 Urine Protein 1+ H Urine Glucose (UA) Negative Urine Ketones Negative Urine Occult Blood 2+ H Urine Nitrate Negative Urine Bilirubin Negative Urine Urobilinogen 0.2 Ur Leukocyte Esterase Negative Urine RBC 1-5/hpf Urine WBC 1-5/hpf Urine Bacteria Many (>30) H Ur Culture Indicated? Specimen cultured SARS-CoV-2 (PCR) Assessment & Plan Assessment & Plan narrative: Ms. Steiner is a 80W with H lung cancer s/p lobectomy, COPD, CHF, afib who comes in with sepsis from possible pneumonia, acute respiratory failure from copd/chf, and newly found metastatic disease of unknown primary source. 1. Acute respiratory failure, with hypoxemia -multifactorial with clear evidence of decompensated CHF -has evidence of COPD with cough, phlegm, hypoxemia, wheezes -possible pneumonia underlying lung pathology with elevated WBC -treat each as below 2. Acute COPD exacerbation -will continue on oxygen for sat >90% -continue azithromycin, nebulizers, and prednisone 3. Acute CHF exacerbation -is clearly volume overloaded on exam, with pleural effusions, also has elevated BNP -has already been ordered for lasix, will continue -will order ECHO -elevated troponin likely in setting of demand 4. Acute bacterial pneumonia with sepsis -has elevated white count and respiratory decompensation -sepsis evidence with respiratory failure, tachycardia, elevated lactate -CT shows possible consolidation -order broad spectrum antibiotics with vanco/aztreonam -follow up blood cultures -trend lactate as it continues to rise 5. Metastatic disease -imaging shows extensive hepatic mets -pleural effusion may be metastatic in origin -CT shows pulmonary nodule concerning for metastatic disease -will order for thora with cytology and pleural fluid analysis for more information -will optimally help control patients symptoms 6. Distended gallbladder -no murphys sign, does have elevated WBC -stone noted in neck of gallbladder -discussed with patient and she does not want to undergo any surgical intervention -for now on broad antibiotics 7. Coagulopathy -from coumadin -no evidence of any bleeding currently -will give IV vitamin K 5mg x1 in order to lower INR for possible thora 8. Atrial fibrillation with RVR, persistent -exacerbated in setting of acute decompensated illness -on metoprolol at home -will continue oral metoprolol but will likely need increase in dose to better control rate -ECHO ordered 9. Thrombocytopenia -mild plts of 117 -trend daily -no need for transfusion -etiology is likely cancer vs acute infection IVF: None DVT ppx: none, coagulopathic currently reversing INR Diet: Low salt Code status: DNR, proxy is son David
[2020-12-12] MEDS: PHYTONADIONE (VIT K1) 5 MG in DEXTROSE 5 % IN WATER 50 ML 101 ML IV (19:44)
[2020-12-12 20:20] LABS: Lactate (Lactic Acid) 2.9 mmol/L (0.7-2.1)
[2020-12-12] MEDS: VANCOMYCIN 1,000 MG/200 ML PIGGYBACK 200 MG IV (20:24)
--- NOTE | 2020-12-12 21:00 | RT ---
Discussed with BUILDING CUSTODIAL SUPERVISOR Loretta Pratt about scheduled Duo-neb treatment. Explained that Duo-neb can worsen pt's condition to HR in 120s and fluid overload. Recommended to change Duo-neb PRN and D/C albuterol PRN. Also recommended diuretics to reduce fluid overload as well.
[2020-12-12] MEDS: AZTREONAM 2 GM in DEXTROSE 5 % IN WATER 100 ML IV (21:32)
[2020-12-12 22:04] LABS: Reflexed Lactate in 2 Hours Y
[2020-12-12 22:49] LABS: Lactate 2HR (Lactic Acid Rflx) 2.4 mmol/L (0.7-2.1)
[2020-12-12] MEDS: METOPROLOL TARTRATE 5 MG/5 ML INJ IV (23:51)
[2020-12-13] VITALS (26 sets, daily range): BP systolic 90–169; BP diastolic 59–95; PULSE 71–127; RESP 17–34; TEMP 35.7–36.6; O2SAT 89–100
[2020-12-13] MEDS: dilTIAZem 5 MG/ML SDV 18 MG IV (00:30)
[2020-12-13] MEDS: dilTIAZem 5 MG/ML SDV 25 MG IV (02:46)
--- NOTE | 2020-12-13 04:54 | PC.NURSE ---
Addendum entered by Radha Quintanilla R.N. 12/13/20 04:59: at 0430 bp was 139/85 and HR 127, pt on 2L O2 at 94%. Report was given to ICU nurse and pt transfered, provider aware. Original Note: pt's HR was increased to 125 at the begining of shift, provider ordered IV Metoprolol, and then IV diltiazem and HR was controlled for only about an hour, 2nd dose of diltiazem was ordered and HR was controlled for about an hour, provider notified and orders placed for pt to be monitored in ICU with drip. Pts other vitals stable and pt denies pain or other new sx's. Nurse explained to the pt why she was being moved to ICU, pt agreeable. pt and belongings were moved to ICU with portable O2 at 2L.
[2020-12-13 05:24] LABS: INR 2.3 (0.9-1.3); Prothrombin Time 26.4 SECONDS (10.1-12.7)
[2020-12-13 05:26] LABS: Add Manual Diff / Slide Review NO; Basophils Absolute Auto 0 /uL (0-100); Basophils Percent Auto 0.2 % (0-2); Eosinophils Absolute Auto 0 /uL (0-450); Hematocrit 52.9 % (36-46); Hemoglobin 17.3 g/dL (12.0-16.0); Lymphocytes Absolute Auto 1300 /uL (1100-4500); Lymphocytes Percent Auto 6.4 % (25-40); Mean Corpuscular HGB Conc 32.8 % (30-36); Mean Corpuscular Hemoglobin 30.7 PG (26-34); Mean Corpuscular Volume 93.8 fL (80-100); Monocytes Absolute Auto 700 /uL (0-900); Monocytes Percent Auto 3.7 % (3-14); Neutrophils Absolute Auto 17600 /uL (1500-7000); Neutrophils Percent Auto 89.7 % (50-75); Platelet Count 96 X10^3/uL (150-400); Red Blood Cell Count 5.64 X10^6/uL (4.0-5.2); Red Cell Distribution Width 15.2 % (11.6-14.8); White Blood Cell Count 19.6 X10^3/uL (4.5-11.0)
[2020-12-13] MEDS: dilTIAZem 125 MG in SODIUM CHLORIDE 0.9% 100 ML IV (05:26)
[2020-12-13 05:31] LABS: Blood Urea Nitrogen 69 mg/dL (7-17); Calcium 9.3 mg/dL (8.4-10.2); Carbon Dioxide 19 mmol/L (22-32); Chloride 101 mmol/L (98-107); Estimated Glomerular Filt Rate 42.6 mL/min (>60); Glucose 239 mg/dL (80-110); HEMOLYSIS 45 (0-50); Magnesium 2.6 mg/dL (1.6-2.3); Potassium 4.9 mmol/L (3.4-5.1); Sodium 133 mmol/L (137-145)
[2020-12-13 05:42] LABS: Alanine Aminotransferase 249 IU/L (<35); Albumin 3.7 g/dL (3.5-5.0); Albumin Globulin Ratio 1.3 (1.0-2.8); Alkaline Phosphatase 241 U/L (38-126); Aspartate Aminotransferase 173 IU/L (14-36); Bilirubin Total 2.3 mg/dL (0.2-1.3); Bilirubin Unconjugated 1.3 mg/dL (0.0-1.1); Globulin 2.8 g/dL (1.7-4.1); HEMOLYSIS 44 (0-50); Total Protein 6.5 g/dL (6.3-8.2)
[2020-12-13] MEDS: AZTREONAM 2 GM in DEXTROSE 5 % IN WATER 100 ML IV ×2 (05:49→14:26)
[2020-12-13] MEDS: METOPROLOL IR 50 MG TABLET 100 MG PO (07:32)
--- NOTE | 2020-12-13 08:59 | PC.NURSE ---
Addendum entered by Loretta Garcia R.N. 12/13/20 15:10: CARTOGRAPHIC ENGINEER reported 125mls out this shift. Tatums tinged urine, clear. Addendum entered by Loretta Garcia R.N. 12/13/20 14:21: Pt remains with SOB with activity, does not notice HR in 120's at rest, IV Digoxin given, no change to tele at present. IV ABX infusing. Addendum entered by Loretta Garcia R.N. 12/13/20 12:48: Pt INR remains elevated @ 2.3, unable to do thoracocentesis today. Order cancelled. Addendum entered by Loretta Garcia R.N. 12/13/20 12:38: 1230-No Change to HR at this time. ST 110-120. Denies CP. Continues SOB with exertion. Voice remains whisper, per baseline. BP stable. Remains on 3L NC. Addendum entered by Loretta Garcia R.N. 12/13/20 12:34: Pt had approx 2 hours of good rate control after PO Metoprolol, and stopping the Cardizem. However, HR has returned to ST in 110-120. Notified Hospitalist, orders rec'd for add'l dose of PO Metoprolol, will attempt 150mg PO BID. Original Note: Am shift 0730 Pt is Tachy @ 125-[address]. Update to Dr Knight, PO Metoprolol given, as Dilt gtt @ 15ml/hr. EKG obtained. Pt denies increase to SOB, and reports wheeze, which is audible from bedside. Spo2 95% on 3L No home O2 use at baseline. PIV x2. Tapering Dilt gtt off this am, noted @ 0840 Pt is now in CVR Afib with rate of 76. Pt is unaware of these changes until notified by RN. No CP.
[2020-12-13] MEDS: METOPROLOL IR 50 MG TABLET PO (11:07)
[2020-12-13] MEDS: predniSONE 20 MG TABLET 40 MG PO (11:08)
--- NOTE | 2020-12-13 12:43 | PC.NURSE ---
Son Called and will be out of town for 2-3 days, he would like to update Lien Arechiga as transportation and any other needs that Pt should have her #[phone], ok to release all information to her (Lien)
[2020-12-13] MEDS: DIGOXIN 500 MCG/2 ML AMPUL IV (13:39)
--- NOTE | 2020-12-13 14:07 | ST.IPCSEOM ---
Visit Care Team Role Provider Type Kamlesh Duong MD Primary Care Provider Non-Staff Specialty: Orthopedic Surgery Address: [address] [place] [address], [id number] Email: Valeriy Warren MD Emergency Provider Physician Referring Provider Specialty: Emergency Medicine Address: [address] [place] [address], [id number] Email: [email or web address] Danyel Knight MD Admit Provider Physician Attending Provider Specialty: Hospitalist Address: [address] [place] [address], [id number] Fax: Email: [email or web address] Past Medical History (Last Reviewed 12/12/20 @ 19:52 by Danyel Knight MD) Glaucoma (Medical) Hypertension (Medical) Kidney stones (Medical) Lung cancer (Medical) Speech-Language Pathology Swallow Evaluation [facility] [employer] Clinical Swallow Evaluation Start: 12/13/20 13:39 Freq: Status: Active Protocol: Document 12/13/20 13:40 TLC (Rec: 12/13/20 14:07 TLC [id number]) Clinical Swallow Evaluation Session Time Visit Start Time 12:45 Visit Stop Time 13:15 Total Visit Minutes 30 Visit Information Visit Number [address] Knight Reason for Referral Coughing with meds/liquids Setting Assessment Location Acute Care Visit Type Note Type Initial evaluation Next Note Type Next Note Type Re-evaluation Patient Information History Patient was brought to emergency department by EMS for worsening shortness of breath over the last month. She has a history of CHF, COPD , afib, lung cancer s/p lobe resection, HTN. Subjective Observations Patient was awake and alert sitting up in bed with lunch tray present. She had not eaten much off her tray. She was cooperative and responsive , though responded in a whisper and short 1 word responses due to history of vocal fold dysfunction. She was noted to have a flat affect. Reported by Patient Other Symptoms Coughing,Difficulty swallowing liquids,Difficulty swallowing pills Baseline Feeding Method Independent in self-feeding Results Patient consumes soft diet at home. Objective Assessment Mental Status Alert,Responsive,Cooperative Oral Integrity Oral residue Dentition Dentures or partials present, Poor denture or partial fitting Lip Function Within normal limits Observation of Lips at Rest Symmetrical Pucker Within normal limits Lip Retraction Within normal limits Tongue Function Moderate impairment Observations of Tongue at Rest Within normal limits Tongue Protrusion Reduced range of motion Tongue Lateralization Reduced range of motion, Reduced strength Observations of Hard/Soft Palate Reduced strength/ROM of soft palate elevation Comment Patient is aphonic. I provided her with a communication board to augment communication. Both upper and lower dentures were present, but patient took them out during the assessment and said she does not usually wear them at home. She consumes a soft diet at home and spends all day in bed. Food and Liquid Trials Position During Assessment Upright (90 degrees) Liquids Trialed Thin Solids Trialed Puree Administration Type Needs some assistance Oral Impairment Moderately impaired Oral Phase Comments Reduced strength and range of motion for mastication and bolus transport. Significant oral residue on tongue which did not fully clear with liquid wash. Observed oral holding of bolus. When asked, patient said she is scared of things going down the wrong way. She reports this happens at least once a day. Pharyngeal Phase Comments Significantly impaired respiratory swallow coordination. Occasional throat clear observed with sips of thin liquid. Recommend Modified Barium Swallow Study to assess pharyngeal phase of swallowing. Patient at risk for aspiration given vocal cord dysfunction, impaired respiratory swallow coordination. Further, her risk of developing aspiration pneumonia is high due to dependance for oral care and more than one medical diagnosis ([place], 1998). Fatigue/Endurance Severe fatigue Comment Related to respiration and mastication Findings Swallowing Function Dysphagia unspecified Severity of Swallow Impairment Moderately impaired Contributing Factors to Swallow Reduced oral strength/ Impairment coordination/sensation, Mastication inefficiency Prognosis Fair Based on Bed bound,Comorbidities Impact on Safety and Functioning Risk for aspiration,Risk for inadequate nutrition/hydration Recommendations Instrumental Assessment Yes Recommended Solids Puree Recommended Liquids Thin Other Recommendations Nursing assistance with oral care following all meals. Safety Precautions/Swallowing Remain upright (90 degrees) Recommendations during all oral intake,Upright position at least 30 minutes after meals,Small bites and sips when eating,Slow rate; swallow between bites, Alternate liquids and solids Medication Recommendations Crushed in Carrier Education Patient/Caregiver Education Described results of evaluation,Patient expressed understanding of evaluation, Patient expressed agreement with goals & treatment plans, Patient requires further education/training. MBSS scheduled for 11:30am tomorrow (12/14)
--- NOTE | 2020-12-13 14:38 | P.PN_ITS ---
Subjective Subjective Date Patient Seen: 12/13/20 Time Patient Seen: 14:41 Interval history: Overnight patient continued to have tachycardia in the 120s- 130s. Initially attempt was to increase oral metoprolol and to give IV metoprolol pushes. Then increasing doses of dilt pushes, and then started on a diltiazem drip. Today her heart rate remains in 120s on the dilt drip. Otherwise she feels not significantly different except for breathing feels improved. Exam Vital Signs (past 8 hours): - 12/13/20 08:00 12/13/20 11:29 12/13/20 11:30 Temperature 97.5 F L Pulse Rate 127 H 126 H Respiratory Rate 20 25 H Blood Pressure 122/61 Pulse Oximetry 93 93 94 12/13/20 12:00 12/13/20 13:39 Temperature 96.3 F L Pulse Rate 126 H 126 H Respiratory Rate 24 Blood Pressure 134/79 134/79 Pulse Oximetry 94 Oxygen Delivery Method Nasal Cannula Oxygen Flow Rate 2 Narrative Exam Narrative: GENERAL: chronically ill appearing woman, moderate respiratory distress, hoarse voice HEENT: PERRL, trachea midline, moist mucous membranes CV: tachycardic, no murmurs PULM: bilateral crackles, decreased breath sounds at left base, bilateral wheezes, tachypneic ABD: soft, tender RUQ, but no rebound or guarding, normal bowel sounds EXT: warm and well perfused, 2+ pitting edema NEURO: AAOx3, normal strength in extremities PSYCH: pleasant, cooperative Objective Labs Result Diagrams: 12/13/20 04:56 12/13/20 04:56 Labs: Laboratory Results - last 24 hr 12/12/20 12/12/20 12/12/20 15:54 20:01 22:19 WBC RBC Hgb Hct MCV MCH MCHC RDW Plt Count Neut % (Auto) Lymph % (Auto) King[place] % (Auto) Eos % (Auto) Baso % (Auto) Neut # (Auto) Lymph # (Auto) Kingman # (Auto) Eos # (Auto) Baso # (Auto) PT INR Sodium Potassium Chloride Carbon Dioxide BUN Creatinine Estimated GFR BUN/Creatinine Ratio Glucose Lactate 2.7 H 2.9 H 2.4 H Calcium Magnesium Total Bilirubin Conjugated Bilirubin Unconjugated Bilirubin AST ALT Alkaline Phosphatase Total Protein Albumin Globulin Albumin/Globulin Ratio Nasal Screen MRSA (PCR) 12/13/20 12/13/20 12/13/20 04:55 04:56 04:56 WBC 19.6 H RBC 5.64 H Hgb 17.3 H Hct 52.9 H MCV 93.8 MCH 30.7 MCHC 32.8 RDW 15.2 H Plt Count 96 L Neut % (Auto) 89.7 H Lymph % (Auto) 6.4 L Kingman % (Auto) 3.7 Eos % (Auto) 0.0 L Baso % (Auto) 0.2 Neut # (Auto) 49257 H Lymph # (Auto) 1300 Kingman # (Auto) 700 Eos # (Auto) 0 Baso # (Auto) 0 PT 26.4 H D INR 2.3 H Sodium Potassium Chloride Carbon Dioxide BUN Creatinine Estimated GFR BUN/Creatinine Ratio Glucose Lactate Calcium Magnesium Total Bilirubin Conjugated Bilirubin Unconjugated Bilirubin AST ALT Alkaline Phosphatase Total Protein Albumin Globulin Albumin/Globulin Ratio Nasal Screen MRSA (PCR) Negative for mrsa 12/13/20 12/13/20 04:56 04:56 WBC RBC Hgb Hct MCV MCH MCHC RDW Plt Count Neut % (Auto) Lymph % (Auto) Kingman % (Auto) Eos % (Auto) Baso % (Auto) Neut # (Auto) Lymph # (Auto) Kingman # (Auto) Eos # (Auto) Baso # (Auto) PT INR Sodium 133 L Potassium 4.9 Chloride 101 Carbon Dioxide 19 L BUN 69 H Creatinine 1.21 H Estimated GFR 42.6 L BUN/Creatinine Ratio 57.0 H Glucose 239 H Lactate Calcium 9.3 Magnesium 2.6 H Total Bilirubin 2.3 H Conjugated Bilirubin 0.0 Unconjugated Bilirubin 1.3 H AST 173 H ALT 249 H Alkaline Phosphatase 241 H Total Protein 6.5 Albumin 3.7 Globulin 2.8 Albumin/Globulin Ratio 1.3 Nasal Screen MRSA (PCR) [facility] Medical History Glaucoma Hypertension Kidney stones Lung cancer Surgical History History of aortic valve replacement with metallic valve History of appendectomy History of bilateral tubal ligation Status post thoracotomy Family History Father Heart disease Grandfather Cancer Social History household members: family lives independently: Yes Smoking Status: Never smoker alcohol intake: never substance use type: does not use Assessment & Plan Assessment & Plan narrative: Ms. Steiner is a 80W with H lung cancer s/p lobectomy, COPD, CHF, afib who comes in with sepsis from possible pneumonia, acute respiratory failure from copd/chf, and newly found metastatic disease of unknown primary source. 1. Acute respiratory failure, with hypoxemia -multifactorial with clear evidence of decompensated CHF -has evidence of COPD with cough, phlegm, hypoxemia, wheezes -possible pneumonia underlying lung pathology with elevated WBC -treat each as below 2. Acute COPD exacerbation -will continue on oxygen for sat >90% -continue azithromycin, nebulizers, and prednisone -having still wheezing, but did not get around the clock nebulizers overnight 3. Acute CHF exacerbation -is clearly volume overloaded on exam, with pleural effusions, also has elevated BNP -has already been ordered for lasix -12/13 had mild increase in creatinine, will hold lasix for now -will order ECHO -elevated troponin likely in setting of demand 4. Acute bacterial pneumonia with sepsis -has elevated white count and respiratory decompensation -WBC improving 24.8->19.6 -sepsis evidence with respiratory failure, tachycardia, elevated lactate -CT shows possible consolidation -order broad spectrum antibiotics with vanco/aztreonam -follow up blood cultures -trend lactate as it continues to rise 5. Metastatic disease -imaging shows extensive hepatic mets -pleural effusion may be metastatic in origin -CT shows pulmonary nodule concerning for metastatic disease -will order for thora with cytology and pleural fluid analysis for more information -will optimally help control patients symptoms -downtrending LFTs on 12/13, will continue to trend, might be improving with diuresis or antibiotics 6. Distended gallbladder -no murphys sign, does have elevated WBC -stone noted in neck of gallbladder -discussed with patient and she does not want to undergo any surgical interventi on -for now on broad antibiotics 7. Coagulopathy -from coumadin -no evidence of any bleeding currently -gave IV vitamin K 5mg x1 in order to lower INR for possible thora, however still 2.5 today -reordered vitamin K 5mg -plan for possible thora with cytology to eval for malignancy on 12/14 8. Atrial fibrillation with RVR, persistent -exacerbated in setting of acute decompensated illness -on metoprolol at home -continue on oral metoprolol but at increased dose now 150mg BID -poor control with IV dilt pushes or drip -will try digoxin IV load -ECHO ordered 9. Thrombocytopenia -mild plts of 117 on admission, down to 96 on 12/13 -trend daily -no need for transfusion -etiology is likely cancer vs acute infection 10. Polycythemia -last hemoglobin from 2017 -here hemoglobin stable at 17.3, possible in setting of cancer vs chronic hypoxemia with COPD IVF: None DVT ppx: none, coagulopathic currently reversing INR Diet: Low salt Code status: DNR, proxy is jose Gordon VTE Deep Vein Thrombosis/Pulmonary Embolism Present on Admission: No
[2020-12-13] MEDS: PHYTONADIONE (VIT K1) 5 MG TABLET PO (15:32)
[2020-12-13] MEDS: PIPERACILLIN-TAZO 4.5 GM/100 ML FROZ.PIGGY IV (15:32)
--- NOTE | 2020-12-13 15:45 | CM.DANOTE ---
Discharge Planning/Care Management DCP: assessment: case received, EMR reviewed and discussed briefly in Team Rounds outside of room. RN Loretta, caring for pt today, said she was sleeping and decision by team not to disturb her. Pt is an 80 year old female who admitted to care of hospitalist team yesterday afternoon. Dr. Jernigan stated that discussion with DPOA son David and pt indicated desire by pt for DNR DNI and Limited Interventions. Pt does not have an advanced directive in writing. PCP: Kamlesh Tripathi Met now with pt and introduced self and role. Pt is soft spoken because of her vocal cord dysfunction but seems very clear and able to say what is important to her. Pt confirmed she knew her son would be unavailable for a few days and that neighbor Lien Arechiga had been given the ok by her son to take over as her advocate. Pt says she agrees with this plan. Asked about her plan for after hospital care and if it was for home. She stated I need help and agreed that a halfway stay for some rehab/recovery that will still support her overall goals of Limited Interventions and using her Medicare snf level benefit would at this time be best for her. She would like referrals place to [facility] [place] [facility] Rehab/done: Susan is reviewing and [facility]/done by discussion with [facility]/reviewing: will fax face sheet and LIZZ najera followup to send a more complete referral package to [facility] in the morning. Have now followup up with a phone call to Lien: [phone]. She clarifies that she did speak with David (and gives his correct cell #: [phone]). She states that he did not want his mother to worry but he is now in senior care and will be there for 10 days and unavailable by phone). She says she is happy to act as an advocate for pt and agrees to be here tomorrow at about 0830 to see pt, be present for Rounds, and then meet with this DCPlanner and with pt for further discussion on POC going forward. She said she knew that pt had clear ideas about her wishes and she is very supportive of these. P: follow up as noted tomorrow. Anjali ÁLVAREZ is updated. Advanced directive, confirm from FAMILY Start: 12/12/20 21:23 Freq: Q24H Status: Active Protocol: Document 04/21/21 21:23 AGW (Rec: 12/12/20 23:51 AGW [id number]) Advance Directive, confirm on record Time 21:30 Person contacted patient Copy received No CM Discharge Assessment Start: 12/13/20 15:41 Freq: Status: Active Protocol: Document 12/13/20 15:43 ITV (Rec: 12/13/20 15:45 ITV [id number]) Discharge Planning Assessment Advance Directives? No History Provided By Patient,Friend,Medical Record Has Patient been admitted in last 30 No days? Prior Living Arrangements House Household Members son: Comment lives with son David Hoang: DPOA. He is currently out of town and unavailable for the next 10 days. He has given ok to discuss care needs with neighbor Lien Arechiga and pt agrees with this Is patient alert and oriented? Yes Patient/Family Preference Fdc Facility Whiteboard Updated in Patient Room with Yes name and ext. # of [employer]
[2020-12-13] MEDS: AZITHROMYCIN 500 MG in DEXTROSE 5% IN WATER 250 ML IV (16:15)
[2020-12-13] MEDS: AMIODARONE 150 MG/100 ML PIGGYBACK 600 MG IV (17:03)
[2020-12-13] MEDS: AMIODARONE 360 MG/200 ML PIGGYBACK 33.33 MG IV (17:37)
[2020-12-13] MEDS: ALBUTEROL/IPRATROPIUM 3 ML AMPUL INH ×2 (18:56→22:08)
--- NOTE | 2020-12-13 20:00 | RT ---
At 3, placed pt on HFNC at 10 LPM due to WOB. Pt seems more comfortable. RN aware.
[2020-12-13] MEDS: SODIUM CHLORIDE 0.9% FLUSH 10 ML IV (20:19)
[2020-12-13] MEDS: PIPERACILLIN-TAZO 3.375 GM/50 ML FROZ.PIGGY IV (20:20)
[2020-12-13] MEDS: METOPROLOL IR 50 MG TABLET 150 MG PO (20:20)
--- NOTE | 2020-12-13 22:59 | PC.NURSE ---
evening shift - At start of shift patient on 2L nasal cannula, satting mid to lower 90s. Patient short of breath at rest and with movement, tachypneic at rest. Expiratory wheezing heard throughout lungs. Patients nolen was leaking at start of shift, hospitalist notified, nolen repositoned and now draining joel urine. Patient was placed on amio gtt and ordered was placed for midline to be put in. Midline placed. Around 1999 patient was placed on humidified high flow in order to help decrease work of breathing, MD aware. Patient resting more comfortably in bed at this time. Patient not complaining of any pain throughout the shift. Patient being Q2 turned and repositioned. Foam dressing placed on patients coccyx.
[2020-12-13] MEDS: AMIODARONE 360 MG/200 ML PIGGYBACK 16.7 MG IV (23:01)
[2020-12-14] VITALS (33 sets, daily range): BP systolic 81–142; BP diastolic 54–90; PULSE 60–118; RESP 10–33; TEMP 36.1; O2SAT 96–99; BMI 30.4
[2020-12-14] MEDS: PIPERACILLIN-TAZO 3.375 GM/50 ML FROZ.PIGGY IV (03:57)
[2020-12-14 05:17] LABS: Hematocrit 51.3 % (36-46); Hemoglobin 16.7 g/dL (12.0-16.0); INR 1.8 (0.9-1.3); Mean Corpuscular HGB Conc 32.6 % (30-36); Mean Corpuscular Hemoglobin 30.4 PG (26-34); Mean Corpuscular Volume 93.5 fL (80-100); Platelet Count 76 X10^3/uL (150-400); Red Blood Cell Count 5.49 X10^6/uL (4.0-5.2); Red Cell Distribution Width 15.4 % (11.6-14.8); White Blood Cell Count 25.3 X10^3/uL (4.5-11.0)
[2020-12-14 05:25] LABS: Alanine Aminotransferase 194 IU/L (<35); Albumin 3.3 g/dL (3.5-5.0); Albumin Globulin Ratio 1.3 (1.0-2.8); Alkaline Phosphatase 225 U/L (38-126); Aspartate Aminotransferase 112 IU/L (14-36); BUN Creatinine Ratio 52.9 (6-22); Bilirubin Total 1.4 mg/dL (0.2-1.3); Bilirubin Unconjugated 0.7 mg/dL (0.0-1.1); Blood Urea Nitrogen 81 mg/dL (7-17); Calcium 8.8 mg/dL (8.4-10.2); Carbon Dioxide 23 mmol/L (22-32); Chloride 101 mmol/L (98-107); Estimated Glomerular Filt Rate 32.5 mL/min (>60); Globulin 2.5 g/dL (1.7-4.1); Glucose 218 mg/dL (80-110); HEMOLYSIS 26 (0-50); Potassium 4.5 mmol/L (3.4-5.1); Sodium 133 mmol/L (137-145); Total Protein 5.8 g/dL (6.3-8.2)
--- NOTE | 2020-12-14 07:04 | DI.RAD.S_ITS ---
PROCEDURE: XR CHEST 1V INDICATIONS: SOB TECHNIQUE: One view of the chest was acquired. COMPARISON: [facility], CR, XR CHEST 1V, 12/12/2020, 12:52. FINDINGS: Heart size within normal limits. There is mild vascular congestion. Soft secretion of both hemidiaphragms with blunting of both costophrenic angles, greater on the left. Midline sternal wires and mediastinal vascular clips present. Osseous structures otherwise unremarkable. IMPRESSION: Stable bibasilar pleural effusions with associated compressive atelectasis. Mild vascular congestion. Dictated by: Gatito Abbasi M.D. on 12/14/2020 at 8:43 Approved by: Gatito Abbasi M.D. on 12/14/2020 at 8:44
[2020-12-14] MEDS: SODIUM CHLORIDE 0.9% FLUSH 10 ML IV ×2 (07:37→11:47)
[2020-12-14] MEDS: ALBUTEROL/IPRATROPIUM 3 ML AMPUL INH (07:39)
--- NOTE | 2020-12-14 08:15 | CM.DPC ---
Addendum entered by Lurdes Hinton LPN 12/14/20 14:42: Was just updated that pt has now . RN Bozena as updated Lien and she will be arriving shortly to help in further arrangements. Addendum entered by Lurdes Hinton LPN 12/14/20 13:45: Have continued to work on the d/c issues and options as the POC has evolved today: in coordination with pt, advocate/neighbor Lien Mukund: [phone] Dr. Knight. Lien and pt have had frequent conversations with pt's DPOA son David who is serving a short retirement sentence and will be released and available to care of his mother at home on December 22. David has limited phone time and thus Lien remains the liaison for pt and David and the overall coordination of the POC going forward. Pt has been very alert and active in the ongoing planning and all planning reflects her expressed desires. At this time pt is transitioning to and end of life symtom management plan. She is being given IV morphine and IV ativan as well as supplemental oxygen/currently at 7 L to help ease her breathing. She becomes very short of breath with any movement and Dr. Knight is uncertain if she will survive the weekend. POC: going forward: on Friday 12/15 if appropriate pt will trial oral/sublingual medications to see if adequate level of comfort is sustained. Needs 24 hours of this and with plan to move to [facility] on Sunday 12/17 under skilled Medicare snf benefit for skilled end of life symptom management. This is a limited benefit for 5-7 days. If pt survives to December 22 she will transition to home under care of her son/16/03 and Lien who can be there much of each day. [facility] referral has been [facility]. Alina has been updated re specifics and with expectation of an open on December 22 if pt still is in need of services. Lien has already spoken with January re what the snf setting looks like, visits etc and all conversations have been right at pt's bedside. Susan will be on over the weekend for [facility]. (on initial referral had also been sent yesterday to [facility]Maurice N[facility]. She had called earlier today to say the team was still reviewing, would not consider acceptance over weekend and would review again Thursday. discussed this with pt and Lien and they requested the referral be released/done via vm to [facility].) Pt states she is very relieved to have made this overall decision. She says she is thankful for the good support of her son and Lien and her family. (Lien is also caring for pt's cat) POLST has been completed: DNAR and Comfort Care Interventions and copies distributed to all appropriate parties. Lien has now left for home. She states she is available by phone 16/03 for any needs that arise and is very committed to supporting pt in David's absence. HENRI Parekh and HENRI Burgos are updated. P: as per above specifics. DCP team will be following. Original Note: DCP: continued: updated Dr. Knight while he was in room speaking with pt. He, pt and HENRI Camacho are aware that pt's advocate Lien is now her designated visitor and will be here at 0830 as per plan off yesterday. A check in now with pt shows she remains agreeable to this plan.
[2020-12-14] MEDS: predniSONE 20 MG TABLET 40 MG PO (08:27)
--- NOTE | 2020-12-14 08:56 | CM.DPNOTE ---
Faxed referral packet to [facility] [address] on 12/14/20. Received fax confirmation. Shanita Carter CM Asst.
[2020-12-14] MEDS: FUROSEMIDE 100 MG/10 ML VIAL 60 MG IV (09:13)
[2020-12-14 10:05] LABS: Creatinine Urine Random 73.5 mg/dL; Sodium Urine Random < 5 mmol/L (30-90)
[2020-12-14] MEDS: AMIODARONE 360 MG/200 ML PIGGYBACK 16.7 MG IV (10:36)
--- NOTE | 2020-12-14 11:41 | CM.DPNOTE ---
Faxed referral packet to [facility] on 12/15/19. Received fax confirmation. Shanita Carter CM Asst.
[2020-12-14] MEDS: MORPHINE 2 MG/ML INJ IV (11:46)
[2020-12-14] MEDS: SCOPOLAMINE 1 PATCH TOP (11:47)
--- NOTE | 2020-12-14 12:06 | SLP.IPNOTE ---
Pt was scheduled for MBSS morning. MBSS was cancelled due to pt's status change to hospice/comfort care. Nursing confirmed cancellation.
[2020-12-14] MEDS: LORazepam 2 MG/ML INJ 1 MG IV (13:16)
--- NOTE | 2020-12-14 13:20 | PC.NURSE ---
Addendum entered by Bozena Qureshi R.N. 12/14/20 14:53: Patient at 1430, family friend Lien Stauffer called and informed, Lien states that she will calll patients son David. Dr Knight informed. Original Note: Patient short of breath, given 2MG IVP morphine to help with breathing, scopalamine patch placed behind right ear. Patient is now comfort care.
[2020-12-14] MEDS: ATROPINE 1% OPHTH 2 DROPS SL (14:14)
--- NOTE | 2020-12-14 14:43 | CM.DPNOTE ---
Called and spoke to Alina at Hospice to let her know pt. had passed. Also called and left a vm with Susan from [facility] to let her know pt. had passed. Shanita Carter CM Asst.
--- NOTE | 2020-12-14 16:00 | PC.NURSE ---
Addendum entered by Lisa Brady R.N. 12/14/20 17:32: home here at 1705, left with patient at 1720. Paperwork signed and copy made for chart. Original Note: Patient with a few belongings that was given to friend Lien Stauffer. Purse w/ wallet, clothing, dentures, neckless and bracelet were all given to family friend.
--- NOTE | 2020-12-14 16:29 | PM.DDS.1 ---
Discharge Summary History of Illness Narrative: Ms Steiner is an 80W with PMH CHF, COPD, afib, history of lung cancer s/p lobe resection, HTN, s/p pig valve AVR who comes in with shortness of breath. The patient is notably resistant to getting medical care. She has been having shortness of breath for at least one month. Has not wanted to see an MD. Her son called EMS today. She states she has been short of breath that has been worsening. Has phlegm production that is thick and yellow. No fevers or chills. She has also noticed worsening lower extremity swelling. She has noticed mild abdominal pain, no nausea/vomiting/diarrhea. Her pain is nonspecific and not localized. She denies weight loss She came into the ER and vitals were notable for hypoxemia in the 80s, tachypnea in the 30s, she was tachycardic in the 130s. Labs notable for WBC 24.8, hgb 17.3, platelets 117. INR 6.5. Sodium 132, co2 17, bun 63, creatinine 1.02. Lactate 2.3 then repeat 2.7. Bili 3.5, ast 246, alt 275, alk phos 279, troponin 0.037. BNP 1850. UA with bacteria. She was given aztreonam, and lasix IV. She was ordered methylpred, and albuterol, and azithromycin. Abdominal ultrasound was done that showed metastatic lesions. CT of the thorax was done that showed moderate left pleural effusion, 9mm right middle lobe pulmonary nodule. CT of the abdomen and pelvis was done that showed extensive hepatic metastatic disease, and a distended gallbladder. Discussion of findings was had with patient. She is clear she is DNR/DNI. She does not want to undergo any type of surgery. She clearly says her most important goal is to not suffer. She is agreeable to IV medications and thoracentesis. Hospital Course Date of Admission: 12/12/20 14:30 Date of : 12/14/20 Primary care provider: Kamlesh Duong MD Consults: 12/13/20 11:33 Consult to Speech Therapy Evaluate & Treat Comment: Coughing with meds/thin liquids Hx Physician Instructions: Evaluate and treat 12/13/20 17:57 Consult After Hours PICC Line RN Routine Comment: 12/14/20 11:31 Consult to Discharge Planning Routine Comment: comfort measures, hospice Consult to Hospice Referral Urgent Comment: Discharge provider: Dr. Danyel Knight Discharge Diagnosis: 1. Acute respiratory failure with hypoxemia, multifactorial 2. Acute COPD exacerbation 3. Acute CHF exacerbation, preserved EF 4. Acute bacterial pneumonia with sepsis with organ failure with PRABHU 5. Metastatic disease with metastases to the liver, possible pulmonary source 6. Distended gallbladder, possible cholecystitis 7. Atrial fibrillation with RVR 8. Coagulopathy 9. Thrombocytopenia 10. Acute kidney injury 11. Polycythemia 12. Bilateral pleural effusions, possibly malignant Hospital Course: Ms. Steiner was initially admitted with multifactorial respiratory failure, new diagnosis of metastatic disease to the liver of possible pulmonary source, tachycardia from atrial fibrillation, distended gallbladder. Given her initial presentation goals of care were discussed on admission. Patient had been reluctant for some time to seek medical care despite worsening fatigue and respiratory symptoms. On arrival she did state clearly she was a DNR, and that she would not want aggressive treatments such as surgeries for possible cholecystitis. But she was willing for a trial of IV medications as indicated. She was started on broad spectrum antibiotics for possible pulmonary or biliary source of infection. She initially had reversal of her INR of 6.2 with vitamin K to attempt a thoracentesis. She was notably wheezing and coughing some phlegm consistent with COPD exacerbation, she was started on nebulizers, azithromycin, and prednisone. She was notably volume overloaded with CHF and was started on lasix. She had possible sepsis as she had elevated white count, infection of gallbladder of lungs could not be excluded and she had organ failure with respiratory failure and notable transaminitis. However her volume overload precluded aggressive fluid resuscitation. She was in afib with RVR and did not improve with metoprolol, diltiazem, digoxin, and only slightly with amiodarone. All these measures were in the setting of newly discovered metastatic disease. This was discussed with her repeatedly and at length, was discussed with her son, and her friend at bedside. Despite these treatment measures she did not have improvement in her condition. Further discussion was had with her and she clearly stated that she wanted to avoid suffering. She wanted to focus on control of her symptoms. That she was very tired of feeling lousy according to her. Because of this she was made comfort measures. Request was made for hospice. She did pass away and peacefully on 12/14 at 2:30pm. Objective Labs Result Diagrams: 12/14/20 04:55 12/14/20 04:55 Labs: Laboratory Results - last 24 hr 12/14/20 12/14/20 12/14/20 04:55 04:55 04:55 WBC 25.3 H RBC 5.49 H Hgb 16.7 H Hct 51.3 H MCV 93.5 MCH 30.4 MCHC 32.6 RDW 15.4 H Plt Count 76 L PT 21.0 H D INR 1.8 H Sodium 133 L Potassium 4.5 Chloride 101 Carbon Dioxide 23 BUN 81 H Creatinine 1.53 H Estimated GFR 32.5 L BUN/Creatinine Ratio 52.9 H Glucose 218 H Calcium 8.8 Total Bilirubin 1.4 H Conjugated Bilirubin 0.0 Unconjugated Bilirubin 0.7 AST 112 H ALT 194 H Alkaline Phosphatase 225 H Total Protein 5.8 L Albumin 3.3 L Globulin 2.5 Albumin/Globulin Ratio 1.3 Ur Random Sodium Urine Creatinine 12/14/20 Unknown WBC RBC Hgb Hct MCV MCH MCHC RDW Plt Count PT INR Sodium Potassium Chloride Carbon Dioxide BUN Creatinine Estimated GFR BUN/Creatinine Ratio Glucose Calcium Total Bilirubin Conjugated Bilirubin Unconjugated Bilirubin AST ALT Alkaline Phosphatase Total Protein Albumin Globulin Albumin/Globulin Ratio Ur Random Sodium < 5 L Urine Creatinine 73.5
== END 2020-12-14 17:20 | disposition expired | DRG 871 ==
LOC: ED 13:23 → AC 14:33 → ICU 12-13 15:08 → AC 12-17 11:17 → ICU 12-17 11:17
PROVIDERS: Nurse Practitioner Family; Admitting Provider Internal Medicine; Emergency Provider Emergency Medicine; PCP Orthopaedic Surgery; Referring Provider Emergency Medicine; Visit Provider Internal Medicine
DX: A41.9 Sepsis, unspecified organism (principal); J96.01 Acute respiratory failure with hypoxia; J15.9 Unspecified bacterial pneumonia; I50.33 Acute on chronic diastolic (congestive) heart failure; J44.1 Chronic obstructive pulmonary disease with (acute) exacerbation; C78.7 Secondary malignant neoplasm of liver and intrahepatic bile duct; I48.19 Other persistent atrial fibrillation; N17.9 Acute kidney failure, unspecified; C34.90 Malignant neoplasm of unspecified part of unspecified bronchus or lung; K80.10 Calculus of gallbladder with chronic cholecystitis without obstruction; J44.0 Chronic obstructive pulmonary disease with (acute) lower respiratory infection; R65.20 Severe sepsis without septic shock; I11.0 Hypertensive heart disease with heart failure; D69.59 Other secondary thrombocytopenia; R79.1 Abnormal coagulation profile; D75.1 Secondary polycythemia; Z66 Do not resuscitate; Z20.822 Contact with and (suspected) exposure to COVID-19; Z79.01 Long term (current) use of anticoagulants
CPT/HCPCS: 36415; 51701; 71045; 71275; 74177; 76705; 80048; 80053; 80076; 81001; 82550; 82570; 83605; 83690; 83735; 83880; 84300; 84484; 85007; 85025; 85027; 85610; 85730; 87040; 87077; 87086; 87186; 87635; 87797; 92610; 93005; 93010; 94640; 94762; 96365; 96367; 96375; 99285; 99291; C9803; S0073; J0282; J1160; J1642; J1940; J2060; J2270; J2543; J2930; J3430; Q9967